=== PATIENT | female | born 1990 | race Two or more races ===

== ENCOUNTER 2022-11-19 09:13 | Outpatient (OUT) | payer MEDICAID, SELFPAY ==
--- NOTE | 2022-11-19 09:26 | US_ITS ---
[address] [address] Patient Name: MARIO MISHRA MRN: [id number] date: 1990 Sex: F Assigned Patient Location: US Current Patient Location: US Accession/Order Number: [id number] Exam Date: 11/19/2022 09:30 Report Date: 11/19/2022 15:12 At the request of: STACIA SALDANA Procedure: US OB anatomy EXAMINATION: US OB anatomy, US OB cervical length HISTORY: Screening For Anatomic Survey Z36.89 COMPARISON: Ultrasound placenta 10/22/2022 TECHNIQUE: Transabdominal sonographic examination was performed for obstetrical and evaluation. FINDINGS: Number: 1 Heart Rate: 150.0 bpm H.B. /min Amniotic Fluid Volume: Subjectively normal Placental Location: POSTERIOR with lower margin 1.3 cm from os. Cervix Length: 4 cm , closed. ANATOMY: Normal Structures - orbits, midline falx, stomach, kidneys, bladder, umbilical cord insertion into abdomen, cervical spine, thoracic spine, lumbar spine, sacral spine, right upper extremity, left upper extremity, right lower extremity, left lower extremity. SUBOPTIMALLY SEEN: Brain and posterior fossa, hard palate, heart and outflow tracts, diaphragm, umbilical arteries and three-vessel cord ABNORMALITIES: None BIOMETRY: BPD: 4.7 cm 20 weeks 2 days HC: 17.6 cm 20 weeks 0 days AC: 14.6 cm 19 weeks 6 days FL: 3.1 cm 19 weeks 4 days EFW:314.0 grams; 42% FL/AC: 21.2 FL/BPD: 65.3 HC/AC: 1.2 GESTATIONAL AGE: Age by EDC: 19 weeks 6 days GUADALUPE by EDC: 04/01/2023 Age by current US: 20 weeks 0 days GUADALUPE by current US: 04/08/2023 IMPRESSION: 1. Single live intrauterine with growth detailed above. 2. Limited examination due to maternal body habitus and position. Suboptimal visualization of numerous anatomic structures. Follow-up recommended. 3. Low-lying posterior placenta. Electronically authenticated by: MYNOR MCCLOUD Date: 11/19/2022 15:12
== END 2022-11-19 09:14 ==
LOC: US 09:13
PROVIDERS: Visit Provider Obstetrics & Gynecology
DX: Z36.89 Encounter for other specified antenatal screening (principal)
CPT/HCPCS: 76805; 76817

== ENCOUNTER 2022-12-29 08:07 | Outpatient (OUT) | payer MEDICAID, SELFPAY ==
[2022-12-29 12:02] LABS: Glucose 1 Hour 223 mg/dL; Thyroid Stimulating Hormone 0.737 uIU/mL (0.358-3.740)
[2022-12-29 13:06] LABS: Free T4 0.85 ng/dL (0.76-1.46)
== END 2022-12-29 08:08 | disposition home or self-care (01) ==
LOC: LAB 08:09
PROVIDERS: PCP Family Medicine; Visit Provider Obstetrics & Gynecology
DX: R79.89 Other specified abnormal findings of blood chemistry (principal); Z13.1 Encounter for screening for diabetes mellitus
CPT/HCPCS: 36415; 82950; 84439; 84443

== ENCOUNTER 2022-12-31 09:36 | Outpatient (OUT) | payer MEDICAID, SELFPAY ==
[2022-12-31 09:57] LABS: Glucose Fasting 116 mg/dL (74-106)
[2022-12-31 12:04] LABS: Glucose 1 Hour 231 mg/dL
[2022-12-31 12:19] LABS: Glucose 2 Hour 223 mg/dL
[2022-12-31 13:28] LABS: Glucose 3 Hour 108 mg/dL
== END 2022-12-31 09:37 | disposition home or self-care (01) ==
LOC: LAB 09:39
PROVIDERS: PCP Family Medicine; Visit Provider Obstetrics & Gynecology
DX: O99.810 Abnormal glucose complicating pregnancy (principal)
CPT/HCPCS: 36415; 82951; 82952

== ENCOUNTER 2023-01-12 07:16 | Outpatient (OUT) | payer MEDICAID, SELFPAY | END 2023-01-12 07:17 | disposition home or self-care (01) | LOC: CR 07:17 → DE 10:57 | PROVIDERS: PCP Family Medicine; Visit Provider Obstetrics & Gynecology | DX: O24.419 Gestational diabetes mellitus in pregnancy, unspecified control (principal); Z71.3 Dietary counseling and surveillance | CPT/HCPCS: G0108 ==

== ENCOUNTER 2023-01-19 08:30 | Outpatient (RCR) | payer MEDICAID, SELFPAY ==
[2023-01-20 08:19] VITALS: BP 147/91; PULSE 102; RESP 18; TEMP 36.2; O2SAT 96
[2023-01-20] MEDS: RHO(D) IMMUNE GLOBULIN 1,500 UNIT SYRINGE 1500 UNIT IM (08:30)
--- NOTE | 2023-01-20 08:43 | PC.NURSE ---
Patient is here for Rhogam injection, she had her blood work completed yesterday. She denies any complaints, she tolerated injection well. Patient was observed and denies any issues or concerns. She was discharged home.
== END 2023-02-10 17:50 | disposition home or self-care (01) ==
LOC: LAB 08:30
PROVIDERS: PCP Family Medicine; Visit Provider Obstetrics & Gynecology
DX: O26.893 Other specified pregnancy related conditions, third trimester (principal); Z67.91 Unspecified blood type, Rh negative
CPT/HCPCS: 36415; 86850; 86900; 86901; 96372; J2790

== ENCOUNTER 2023-01-25 08:17 | Outpatient (OUT) | payer MEDICAID, SELFPAY ==
--- NOTE | 2023-01-25 08:21 | US_ITS ---
[address] [address] Patient Name: MARIO MISHRA MRN: [id number] date: 1990 Sex: F Assigned Patient Location: [facility] Current Patient Location: [facility] Accession/Order Number: [id number] Exam Date: 01/25/2023 08:21 Report Date: 01/25/2023 15:07 At the request of: STACIA SALDANA Procedure: US OB growth EXAMINATION: US OB growth HISTORY: LGA COMPARISON: Ultrasound OB anatomy FINDINGS: Heart Rate: 132.0 bpm Number: 1.0 Position: CEPHALIC Amniotic Fluid Volume: 16.2 cm Maximum Vertical Pocket: 5.1 cm BIOMETRY: BPD: 7.7 cm cm; 30 weeks 5 days; 77% HC: 27.9 cmcm; 30 weeks 4 days; 48% AC: 27.0 cm cm; 31 weeks 1 days; 88% FL: 5.7 cm cm; 30 weeks 0 days; 50% EFW: 1615.6 grams; 81% FL/AC: 21.1 FL/BPD: 74.6 HC/AC: 1.0 GESTATIONAL AGE: Age by EDC: 29 weeks 3 days GUADALUPE by EDC: 04/01/2023 Age by US: 30 weeks 4 days GUADALUPE by US: 04/01/2023 US/US OB growth IMPRESSION: 1. Single live intrauterine with growth detailed above. Electronically authenticated by: MYNOR MCCLOUD Date: 01/25/2023 15:07
== END 2023-01-25 08:18 | disposition home or self-care (01) ==
LOC: NOMS 08:17
PROVIDERS: PCP Family Medicine; Visit Provider Obstetrics & Gynecology
DX: O36.63X0 Maternal care for excessive fetal growth, third trimester, not applicable or unspecified (principal); Z3A.30 30 weeks gestation of pregnancy
CPT/HCPCS: 76816

== ENCOUNTER 2023-02-22 09:55 | Outpatient (OUT) | payer MEDICAID, SELFPAY ==
--- NOTE | 2023-02-22 09:57 | US_ITS ---
[address] [address] Patient Name: MARIO MISHRA MRN: [id number] date: 1990 Sex: F Assigned Patient Location: US Current Patient Location: Accession/Order Number: [id number] Exam Date: 02/22/2023 09:58 Report Date: 02/23/2023 07:13 At the request of: STACIA SALDANA Procedure: US OB growth EXAMINATION: US OB growth HISTORY: LGA COMPARISON: 01/25/2023 FINDINGS: Heart Rate: 137.0 bpm Amniotic Fluid Volume: 16.6 cm Number: 1.0 Position: Cephalic presentation, longitudinal lie Maximum Vertical Pocket: 3.3 cm cm 5.2 cm cm 3.4 cm cm 4.7 cm cm BIOMETRY: BPD: 8.9 cm cm; 35 weeks 6 days; 96% HC: 32.8 cmcm; 37 weeks 1 days, 95% AC: 32.8 cm cm; 36 weeks 5 days, greater than 97% FL: 6.5 cm cm; 33 weeks 3 days; 40.2 % % EFW: 2789.2 grams, 6 lbs. 2 oz., 97% FL/AC: 19.8 FL/BPD: 73.2 HC/AC: 1.0 GESTATIONAL AGE: Age by EDC: 33 weeks 3 days GUADALUPE by EDC: 04/09/2023 Age by US: 35 weeks 0 days GUADALUPE by US: 03/29/2023 US/US OB growth IMPRESSION: Large for gestational age Electronically authenticated by: MERLY MONIQUE Date: 02/23/2023 07:13
== END 2023-02-22 09:56 | disposition home or self-care (01) ==
LOC: US 09:55
PROVIDERS: PCP Family Medicine; Visit Provider Obstetrics & Gynecology
DX: O36.63X0 Maternal care for excessive fetal growth, third trimester, not applicable or unspecified (principal); Z3A.33 33 weeks gestation of pregnancy
CPT/HCPCS: 76816

== ENCOUNTER 2023-03-01 13:49 | Outpatient (OUT) | payer MEDICAID, SELFPAY ==
--- NOTE | 2023-03-01 13:57 | US_ITS ---
[address] [address] Patient Name: MARIO MISHRA MRN: [id number] date: 1990 Sex: F Assigned Patient Location: [facility] Current Patient Location: Accession/Order Number: [id number] Exam Date: 03/01/2023 14:00 Report Date: 03/01/2023 16:12 At the request of: STACIA SALDANA Procedure: US OB BPP w non-stress EXAMINATION: US OB BPP w non-stress HISTORY: LGA COMPARISON: No relevant comparison available. TECHNIQUE: Ultrasound biophysical profile was performed in the radiology department. BREATHING MOVEMENTS: 2.0 GROSS BODY MOVEMENTS: 2.0 TONE: 2.0 QUALITATIVE AMNIOTIC FLUID VOLUME: 2.0 PRESENTATION: Cephalic HEART RATE: 148.4 bpm bpm. AMNIOTIC FLUID VOLUME: 13.0 cm GESTATIONAL AGE: 34 weeks 3 days CONCLUSION: Total biophysical profile score 8.0. Electronically authenticated by: MYNOR MCCLOUD Date: 03/01/2023 16:12
[2023-03-01 14:34] VITALS: BP 119/65; PULSE 96
== END 2023-03-01 15:16 | disposition home or self-care (01) ==
LOC: US 13:50 → FBC 13:50
PROVIDERS: PCP Family Medicine; Visit Provider Obstetrics & Gynecology
DX: Z34.93 Encounter for supervision of normal pregnancy, unspecified, third trimester (principal)
CPT/HCPCS: 76818

== ENCOUNTER 2023-03-04 13:44 | Outpatient (OUT) | payer MEDICAID, SELFPAY ==
[2023-03-04 13:49] VITALS: BP 141/92; PULSE 109
[2023-03-04 14:21] VITALS: BP 144/70; PULSE 103
== END 2023-03-04 14:30 | disposition home or self-care (01) ==
LOC: FBCO 13:44 → FBC 13:44
PROVIDERS: PCP Family Medicine; Visit Provider Obstetrics & Gynecology
DX: Z34.93 Encounter for supervision of normal pregnancy, unspecified, third trimester (principal)
CPT/HCPCS: 59025

== ENCOUNTER 2023-03-08 10:22 | Outpatient (OUT) | payer MEDICAID, SELFPAY ==
--- NOTE | 2023-03-08 13:47 | US_ITS ---
[address] [address] Patient Name: MARIO MISHRA MRN: [id number] date: 1990 Sex: F Assigned Patient Location: [facility] Current Patient Location: Accession/Order Number: [id number] Exam Date: 03/08/2023 13:50 Report Date: 03/08/2023 16:51 At the request of: STACIA SALDANA Procedure: US OB BPP w non-stress EXAMINATION: US OB BPP w non-stress HISTORY: Third trimester Z34.93 COMPARISON: No relevant comparison available. TECHNIQUE: Ultrasound biophysical profile was performed in the radiology department. FINDINGS: BREATHING MOVEMENTS: 2.0 GROSS BODY MOVEMENTS: 2.0 TONE: 2.0 QUALITATIVE AMNIOTIC FLUID VOLUME: 2.0 PRESENTATION: CEPHALIC HEART RATE: 140.6 bpm H.B./min AMNIOTIC FLUID VOLUME: 16.8 cm cm GESTATIONAL AGE: 35 weeks 3 days CONCLUSION: Total biophysical profile score: 8.0 Electronically authenticated by: MERLY MONIQUE Date: 03/08/2023 16:51
[2023-03-08 14:16] VITALS: BP 136/70; PULSE 106
== END 2023-03-08 14:48 ==
LOC: US 10:25 → FBC 13:47
PROVIDERS: PCP Family Medicine; Visit Provider Physician Assistant
DX: O24.419 Gestational diabetes mellitus in pregnancy, unspecified control (principal); Z3A.35 35 weeks gestation of pregnancy
CPT/HCPCS: 76818; G0108

== ENCOUNTER 2023-03-08 10:48 | Outpatient (OUT) | payer MEDICAID, SELFPAY | END 2023-03-08 10:49 | disposition home or self-care (01) | LOC: DE 10:49 | PROVIDERS: PCP Family Medicine; Visit Provider Obstetrics & Gynecology | DX: O24.419 Gestational diabetes mellitus in pregnancy, unspecified control (principal) | CPT/HCPCS: G0108 ==

== ENCOUNTER 2023-03-11 08:32 | Outpatient (OUT) | payer MEDICAID, SELFPAY ==
[2023-03-11 13:49] VITALS: BP 145/78; PULSE 99
== END 2023-03-11 14:45 | disposition home or self-care (01) ==
LOC: FBCO 08:33 → FBC 13:47
PROVIDERS: PCP Family Medicine; Visit Provider Obstetrics & Gynecology
DX: O36.63X0 Maternal care for excessive fetal growth, third trimester, not applicable or unspecified (principal); O24.419 Gestational diabetes mellitus in pregnancy, unspecified control; Z3A.00 Weeks of gestation of pregnancy not specified; O13.3 Gestational [pregnancy-induced] hypertension without significant proteinuria, third trimester
CPT/HCPCS: 59025

== ENCOUNTER 2023-03-15 07:19 | Outpatient (OUT) | payer MEDICAID, SELFPAY ==
--- NOTE | 2023-03-15 13:44 | US_ITS ---
[address] [address] Patient Name: MARIO MISHRA MRN: [id number] date: 1990 Sex: F Assigned Patient Location: [facility] Current Patient Location: Accession/Order Number: [id number] Exam Date: 03/15/2023 13:50 Report Date: 03/15/2023 19:10 At the request of: CLINT VELARDE Procedure: US OB BPP w non-stress EXAMINATION: US OB BPP w non-stress HISTORY: Third trimester COMPARISON: No relevant comparison available. TECHNIQUE: Ultrasound biophysical profile was performed in the radiology department. FINDINGS: BREATHING MOVEMENTS: 2.0 GROSS BODY MOVEMENTS: 2.0 TONE: 2.0 QUALITATIVE AMNIOTIC FLUID VOLUME: 2.0 PRESENTATION: Cephalic HEART RATE: 133.0 bpm H.B./min AMNIOTIC FLUID VOLUME: 15.4 cm cm GESTATIONAL AGE: 36 weeks 3 days CONCLUSION: Total biophysical profile score: 8.0 Electronically authenticated by: MERLY MONIQUE Date: 03/15/2023 19:10
[2023-03-15 14:21] VITALS: BP 143/81; PULSE 86; TEMP 36.1
== END 2023-03-15 14:45 | disposition home or self-care (01) ==
LOC: US 07:19 → FBC 14:00
PROVIDERS: PCP Family Medicine; Visit Provider Physician Assistant
DX: Z34.93 Encounter for supervision of normal pregnancy, unspecified, third trimester (principal); Z3A.36 36 weeks gestation of pregnancy
CPT/HCPCS: 76818; 87081

== ENCOUNTER 2023-03-15 19:57 | Outpatient (REF) | payer MEDICAID, SELFPAY | END 2023-03-15 19:58 | disposition home or self-care (01) | LOC: LAB 19:57 | PROVIDERS: PCP Family Medicine; Visit Provider Obstetrics & Gynecology | DX: Z34.93 Encounter for supervision of normal pregnancy, unspecified, third trimester (principal) | CPT/HCPCS: 87081 ==

== ENCOUNTER 2023-03-18 07:30 | Outpatient (OUT) | payer MEDICAID, SELFPAY ==
[2023-03-18 14:02] VITALS: BP 141/77; PULSE 96
== END 2023-03-18 14:32 | disposition home or self-care (01) ==
LOC: FBCO 07:30 → FBC 13:59
PROVIDERS: PCP Family Medicine; Visit Provider Obstetrics & Gynecology
DX: Z34.93 Encounter for supervision of normal pregnancy, unspecified, third trimester (principal)
CPT/HCPCS: 59025

== ENCOUNTER 2023-03-22 07:54 | Outpatient (OUT) | payer MEDICAID, SELFPAY ==
--- NOTE | 2023-03-22 13:54 | US_ITS ---
[address] [address] Patient Name: MARIO MISHRA MRN: [id number] date: 1990 Sex: F Assigned Patient Location: [facility] Current Patient Location: Accession/Order Number: [id number] Exam Date: 03/22/2023 14:00 Report Date: 03/22/2023 18:46 At the request of: STACIA SALDANA Procedure: US OB BPP w non-stress EXAMINATION: US OB BPP w non-stress HISTORY: THIRD TRIMESTER Z34.03 COMPARISON: No relevant comparison available. TECHNIQUE: Ultrasound biophysical profile was performed in the radiology department. FINDINGS: BREATHING MOVEMENTS: 2 GROSS BODY MOVEMENTS: 2 TONE: 2 QUALITATIVE AMNIOTIC FLUID VOLUME: 2 PRESENTATION: Cephalic HEART RATE: 152 H.B./min AMNIOTIC FLUID VOLUME: 19.2 cm cm GESTATIONAL AGE: 37 weeks 5 days CONCLUSION: Total biophysical profile score: 8 Electronically authenticated by: MERLY MONIQUE Date: 03/22/2023 18:46
--- NOTE | 2023-03-22 13:55 | US_ITS ---
[address] [address] Patient Name: MARIO MISHRA MRN: [id number] date: 1990 Sex: F Assigned Patient Location: [facility] Current Patient Location: [facility] Accession/Order Number: [id number] Exam Date: 03/22/2023 14:00 Report Date: 03/22/2023 18:48 At the request of: STACIA SALDANA Procedure: US OB growth EXAMINATION: US OB growth HISTORY: EXCESSIVE GROWTH AFFECTING O36.63X0 COMPARISON: No relevant comparison available. FINDINGS: Heart Rate: 151.7 bpm Amniotic Fluid Volume: 19.2 cm Number: 1.0 Position: Cephalic presentation, longitudinal lie Maximum Vertical Pocket: 6.5 cm cm 6.5 cm cm 3.8 cm cm 2.3 cm cm BIOMETRY: BPD: 9.5 cm cm; 39 weeks 0 days; 93% HC: 35.1 cmcm; 40 weeks 6 days, 92% AC: 36.3 cm cm; 40 weeks 2 days,>97% FL: 6.9 cm cm; 35 weeks 3 days; 6.6 % % EFW: 3704.6 grams, 8 lbs. 3 oz., 90% FL/AC: 19.0 FL/BPD: 72.4 HC/AC: 1.0 GESTATIONAL AGE: Age by EDC: 37 weeks 5 days GUADALUPE by EDC: 04/07/2023 Age by US: 38 weeks 6 days GUADALUPE by US: 03/30/2023 US/US OB growth IMPRESSION: Abdominal circumference greater than the 97th percentile, otherwise growth within normal limits Electronically authenticated by: MERLY MONIQUE Date: 03/22/2023 18:48
[2023-03-22 14:47] VITALS: BP 143/89; PULSE 107
[2023-03-22 15:09] VITALS: BP 145/75; PULSE 91
[2023-03-22 15:49] VITALS: BP 126/70; PULSE 91
[2023-03-22 16:29] VITALS: BP 148/81; PULSE 90
[2023-03-22 17:05] VITALS: BP 137/74; PULSE 96
== END 2023-03-22 17:17 | disposition home or self-care (01) ==
LOC: FBCO 07:54 → FBC 13:53
PROVIDERS: PCP Family Medicine; Visit Provider Obstetrics & Gynecology
DX: O36.63X0 Maternal care for excessive fetal growth, third trimester, not applicable or unspecified (principal); Z3A.37 37 weeks gestation of pregnancy
CPT/HCPCS: 76816; 76818

== ENCOUNTER 2023-03-25 07:18 | Outpatient (OUT) | payer MEDICAID, SELFPAY ==
[2023-03-25 13:52] VITALS: BP 143/83; PULSE 88
== END 2023-03-25 14:18 | disposition home or self-care (01) ==
LOC: FBCO 07:19 → FBC 13:51
PROVIDERS: PCP Family Medicine; Visit Provider Obstetrics & Gynecology
DX: O36.63X0 Maternal care for excessive fetal growth, third trimester, not applicable or unspecified (principal); Z3A.00 Weeks of gestation of pregnancy not specified
CPT/HCPCS: 59025

== ENCOUNTER 2023-03-28 04:45 | Inpatient (IN) | payer MEDICAID, SELFPAY ==
[2023-03-28] VITALS (36 sets, daily range): BP systolic 114–158; BP diastolic 58–97; PULSE 80–125; RESP 16–18; TEMP 35.8–36.9
[2023-03-28] MEDS: 0.9 % SODIUM CHLORIDE 1,000 ML 125 ML IV (05:55)
[2023-03-28 06:16] LABS: Glucometer 103 mg/dL (74-106)
[2023-03-28 06:32] LABS: Hematocrit 32.6 % (36.0-48.0); Hemoglobin 10.9 g/dL (12.0-16.0); Mean Corpuscular HGB Conc 33.4 g/dL (29.9-35.2); Mean Corpuscular Volume 83.8 fL (81.0-99.0); Mean Platelet Volume 12.4 fL (9.5-13.5); Platelet Count 220 10^3/uL (150-450); Red Blood Count 3.89 10^6/uL (4.20-5.40); Red Cell Distribution Width 15.5 % (11.0-15.0); White Blood Count 10.4 10^3/uL (4.0-11.0)
[2023-03-28] MEDS: OXYTOCIN/0.9 % SODIUM CHLORIDE 10 UNITS/500 ML PLAST..BAG 6 UNIT IV (06:38)
[2023-03-28 06:46] LABS: Amphetamine Screen Urine NEGATIVE (NEGATIVE); Barbiturates Screen Urine NEGATIVE (NEGATIVE); Benzodiazepines Screen Urine NEGATIVE (NEGATIVE); Buprenorphine Screen Urine NEGATIVE (NEGATIVE); Cannabinoid Screen Urine NEGATIVE (NEGATIVE); Cocaine Screen Urine NEGATIVE (NEGATIVE); Methadone Screen Urine NEGATIVE (NEGATIVE); Methamphetamines Screen Urine NEGATIVE (NEGATIVE); Opiate Screen Urine NEGATIVE (NEGATIVE); Oxycodone Screen Urine NEGATIVE (NEGATIVE); Phencyclidine Screen Urine NEGATIVE (NEGATIVE); Tricyclic Antidepressant Urine NEGATIVE (NEGATIVE)
--- NOTE | 2023-03-28 07:29 | W.PC.ACHO ---
Registration Status: ADM IN Primary Language: Austrian Preferred Language: Austrian Report given at 1900 to Mahsa SANDOVAL. Active Medications Generic Name Dose Route Start Last Admin Trade Name Freq PRN Reason Stop Dose Admin Carboprost Tromethamine 250 mcg 03/28/23 04:48 Carboprost Tromethamine 250 Mcg/Ml 1 Ml Vial IM 03/30/23 04:49 Q15M PRN Bleeding Diphenhydramine HCl 25 mg 03/28/23 06:27 Diphenhydramine Hcl 50 Mg/Ml (1ml) Vial IV 03/29/23 06:27 Q6H PRN Itching Ephedrine Sulfate 5 mg 03/28/23 06:27 Ephedrine Sulfate 50 Mg/Ml Vial IV 03/29/23 06:27 Q5M PRN Blood Pressure - Low Fentanyl Citrate 100 mcg 03/28/23 06:27 Fentanyl Citrate/Pf 100 Mcg/2 Ml Vial EPIDURAL ONCE PRN epidural Fentanyl Citrate 100 mcg 03/28/23 06:27 Fentanyl Citrate/Pf 100 Mcg/2 Ml Vial EPIDURAL ONCE PRN epidural Sodium Chloride 1,000 mls @ 125 mls/hr 03/28/23 05:00 03/28/23 05:55 Sodium Chloride 0.9% 1,000 Ml IV 125 mls/hr .Q8H BREEZY Administration Oxytocin/Sodium Chloride 10 units in 500 mls @ 6 mls/hr 03/28/23 05:00 03/28/23 07:15 Pitocin 10 Unit/500 Ml-Ns IV 4 milliunit/min CONT BREEZY 12 mls/hr Infusion Protocol 2 MILLIUNIT/MIN Oxytocin/Sodium Chloride 20 units in 1,000 mls @ 125 mls/hr 03/28/23 05:00 Pitocin 20 Unit/1,000 Ml-Ns IV 03/28/23 12:59 Q8H BREEZY Sodium Chloride 1,000 mls @ 1,000 mls/hr 03/28/23 07:01 Sodium Chloride 0.9% 1,000 Ml IV 03/28/23 08:00 .Q1H ONE Ropivacaine/Sodium Chloride 400 mg in 200 mls @ 6 mls/hr 03/28/23 07:00 Naropin 0.2% 400 Mg/200 Ml Bag EPIDURAL Q24H BREEZY Lidocaine 1 ml 03/28/23 04:48 Lidocaine Hcl 1% 200 Mg/20 Ml Mdv INJ ONCE PRN Pain Lidocaine 5 ml 03/28/23 04:48 Lidocaine Viscous 2% 15 Ml Solution TOPICAL ONCE PRN Pain Lidocaine 5 ml 03/28/23 06:27 Lidocaine Hcl 2% Pf 100 Mg/5 Ml Vial INJ 03/29/23 06:27 Q1H PRN Pain Methylergonovine Maleate 0.2 mg 03/28/23 04:48 Methylergonovine Maleate 0.2 Mg/Ml Ampule IM 03/30/23 04:49 ONCE PRN Uterine Contractility/Contract Methylergonovine Maleate 0.2 mg 03/28/23 04:48 Methylergonovine Maleate 0.2 Mg Tablet PO 03/30/23 04:49 Q4H PRN Uterine Contractility/Contract Misoprostol 600 mcg 03/28/23 04:48 Misoprostol 100 Mcg Tablet PO 03/30/23 04:49 ONCE PRN Uterine Bleeding Misoprostol 800 mcg 03/28/23 04:48 Misoprostol 100 Mcg Tablet SL 03/30/23 04:49 ONCE PRN Uterine Bleeding Misoprostol 1,000 mcg 03/28/23 04:48 Misoprostol 100 Mcg Tablet DE 03/30/23 04:49 ONCE PRN Uterine Bleeding Naloxone HCl 0.4 mg 03/28/23 06:27 Naloxone Hcl 0.4 Mg/Ml Vial IV 03/29/23 06:27 ONCE PRN Respiratory Distress Ondansetron HCl 4 mg 03/28/23 04:48 Ondansetron Pf 4 Mg/2 Ml Vial IV Q6H PRN Nausea And Vomiting Ondansetron HCl 4 mg 03/28/23 04:48 Ondansetron 4 Mg Rapdis Tablet SL Q6H PRN Nausea And Vomiting Oxytocin 10 unit 03/28/23 04:48 Oxytocin 10 Unit/Ml Vial IM 03/30/23 04:49 ONCE PRN Hemorrhage Diet Category Date Time Status Regular Consistency Diet Diet 03/28/23 04:49 Active Consults Category Date Time Status Consult to Anesthesiology Routine Cons 03/28/23 Ordered IV Insertion/Site Date of IV Line Insertion [ 03/28/23 Short PIV (<1.75 in) 20g right Forearm] IV Insertion Time [Short PIV ( 05:10 <1.75 in) 20g right Forearm] Neurology Patient orientation (short person,place,time,situation list)
[2023-03-28] MEDS: 0.9 % SODIUM CHLORIDE 1,000 ML 1000 ML IV (08:46)
[2023-03-28] MEDS: FENTANYL CITRATE/PF 100 MCG/2 ML VIAL EPIDURAL ×2 (09:26→09:27)
[2023-03-28] MEDS: ROPIVACAINE HCL/PF 400 MG/200 ML PREMIX 6 MG EPIDURAL (09:26)
[2023-03-28] MEDS: OXYTOCIN/0.9 % SODIUM CHLORIDE 20 UNITS/1,000 ML PLAST..BAG 125 UNIT IV (09:45)
--- NOTE | 2023-03-28 09:52 | PM.OBPRCVD ---
Procedure Intrapartal events: None Induction method: per pitocin protocol Delivery augmentation: rupture of membranes and pitocin Delivery monitor: external FHT and external uterine Route of delivery: Episiotomy Description: none Laceration description: periurethral - 1st degree Delivery repair: Vicryl Estimated blood loss (mL): 300 Anesthesia type: Epidural Disposition: floor Infant Delivery date: 03/28/23 Gender: female presentation: vertex Placental delivery description: Spontaneous cord description: 3 Vessels
[2023-03-28] MEDS: BENZOCAINE/MENTHOL 85 GRAM SPRAY BOTTLE 1 APPLIC TOPICAL (10:43)
[2023-03-28] MEDS: IBUPROFEN 600 MG TABLET PO ×2 (10:44→19:09)
[2023-03-28] MEDS: LABETALOL HCL 100 MG TABLET PO (21:13)
[2023-03-29] VITALS (7 sets, daily range): BP systolic 135–142; BP diastolic 73–81; PULSE 93–107; RESP 16; TEMP 36.4–36.6
[2023-03-29 05:56] LABS: Basophils Percent Auto 0.3 % (0.2-2.0); Eosinophils Absolute Auto 0.1 10^3/uL (0.0-0.7); Eosinophils Percent Auto 0.5 % (0.9-7.0); Hematocrit 25.6 % (36.0-48.0); Hemoglobin 8.2 g/dL (12.0-16.0); Immature Granulocytes Abs Auto 0.06 10^3/uL (0.00-0.03); Immature Granulocytes Pct Auto 0.6 % (0.0-0.5); Lymphocytes Absolute Auto 1.7 10^3/uL (1.2-3.8); Lymphocytes Percent Auto 17.4 % (20.5-60.0); Mean Corpuscular Hemoglobin 27.4 pg (26.7-34.0); Mean Corpuscular Volume 85.6 fL (81.0-99.0); Mean Platelet Volume 11.3 fL (9.5-13.5); Monocytes Absolute Auto 0.6 10^3/uL (0.3-0.8); Monocytes Percent Auto 6.1 % (1.7-12.0); Neutrophils Absolute Auto 7.3 10^3/uL (1.4-6.5); Neutrophils Percent Auto 75.1 % (43.0-75.0); Platelet Count 163 10^3/uL (150-450); Red Blood Count 2.99 10^6/uL (4.20-5.40); Red Cell Distribution Width 15.6 % (11.0-15.0); White Blood Count 9.7 10^3/uL (4.0-11.0)
--- NOTE | 2023-03-29 07:12 | W.PC.ACHO ---
Registration Status: ADM IN Primary Language: Burundian Preferred Language: Burundian Active Medications Generic Name Dose Route Start Last Admin Trade Name Freq PRN Reason Stop Dose Admin Acetaminophen 650 mg 03/28/23 09:55 Acetaminophen 325 Mg Tablet PO Q6H PRN Mild Pain Al Hydroxide/Mg Hydroxide 2,400 mg 03/28/23 09:55 Magnesium Hydroxide 2,400 Mg/10 Ml Oral.Susp PO Q6H PRN Dyspepsia Benzocaine/Menthol 1 applic 03/28/23 09:55 03/28/23 10:43 Benzocaine/Menthol 85 Gram [place] Bottle TOPICAL 1 applic Q2H PRN Administration Pain Carboprost Tromethamine 250 mcg 03/28/23 04:48 Carboprost Tromethamine 250 Mcg/Ml 1 Ml Vial IM 03/29/23 10:00 Q15M PRN Bleeding Diphtheria/Pertussis/Tetanus Vacc 0.5 ml 03/30/23 09:00 Adacel Diph,Pertuss(Acell),Tet Vac/Pf 0.5 Ml Adult Syringe IM 03/30/23 09:01 .ONCE ONE Docusate Sodium 100 mg 03/29/23 09:00 Docusate Sodium 100 Mg Capsule PO BID BREEZY Sodium Chloride 1,000 mls @ 125 mls/hr 03/28/23 05:00 03/28/23 05:55 Sodium Chloride 0.9% 1,000 Ml IV 125 mls/hr .Q8H BREEZY Administration Ibuprofen 600 mg 03/28/23 09:55 03/28/23 19:09 Ibuprofen 600 Mg Tablet PO 600 mg Q6H PRN Administration Moderate Pain Labetalol HCl 100 mg 03/28/23 13:00 03/28/23 21:13 Labetalol Hcl 100 Mg Tablet PO 100 mg BID BREEZY Administration Measles/Mumps/Rubella Vaccine Live 0.5 ml 03/30/23 09:00 Measles,Mumps,Rubella Vacc/Pf 0.5 Ml Vial SQ 03/30/23 09:01 .ONCE ONE Methylergonovine Maleate 0.2 mg 03/28/23 04:48 Methylergonovine Maleate 0.2 Mg/Ml Ampule IM 03/29/23 10:00 ONCE PRN Uterine Contractility/Contract Methylergonovine Maleate 0.2 mg 03/28/23 04:48 Methylergonovine Maleate 0.2 Mg Tablet PO 03/29/23 10:00 Q4H PRN Uterine Contractility/Contract Misoprostol 600 mcg 03/28/23 04:48 Misoprostol 100 Mcg Tablet PO 03/29/23 10:00 ONCE PRN Uterine Bleeding Misoprostol 800 mcg 03/28/23 04:48 Misoprostol 100 Mcg Tablet SL 03/29/23 10:00 ONCE PRN Uterine Bleeding Misoprostol 1,000 mcg 03/28/23 04:48 Misoprostol 100 Mcg Tablet VA 03/29/23 10:00 ONCE PRN Uterine Bleeding Ondansetron HCl 4 mg 03/28/23 04:48 Ondansetron Pf 4 Mg/2 Ml Vial IV Q6H PRN Nausea And Vomiting Ondansetron HCl 4 mg 03/28/23 04:48 Ondansetron 4 Mg Rapdis Tablet SL Q6H PRN Nausea And Vomiting Senna 17.2 mg 03/28/23 20:00 Sennosides 8.6 Mg Tablet PO QHS PRN Constipation Simethicone 80 mg 03/28/23 09:55 Simethicone 80 Mg Tab.Chew PO QID PRN Abdominal Distention Temazepam 15 mg 03/28/23 20:00 Temazepam 15 Mg Capsule PO QHS PRN Sleep Witch Dulce/Glycerin 1 pad 03/28/23 09:55 Glycerin/Witch Dulce Pads TOPICAL Q2H PRN Pain Diet Category Date Time Status Regular Consistency Diet Diet 03/28/23 09:56 Active Respiratory Oxygen Delivery Method Room Air Oxygen Delivery Method Room Air Oxygen Delivery Method Room Air Oxygen Delivery Method Room Air Cardiology Heart Sounds Strong,Regular Heart Sounds Strong,Regular Renal Bladder Pattern Continent Bladder Pattern Continent Bladder Pattern Continent
[2023-03-29] MEDS: LABETALOL HCL 100 MG TABLET PO ×2 (08:30→21:59)
[2023-03-29] MEDS: DOCUSATE SODIUM 100 MG CAPSULE PO ×2 (08:30→21:59)
[2023-03-29] MEDS: IBUPROFEN 600 MG TABLET PO ×2 (08:32→21:59)
--- NOTE | 2023-03-29 09:09 | PM.OBPN ---
OB - PN: Subj Subjective Patient comments: no complaints and pain well controlled [place] status: doing well feeding status: exclusively Exam Constitutional Vital Signs, click to edit/add: Last Vital Signs Temp 97.5 F L 03/29/23 08:25 Pulse 107 H 03/29/23 08:24 Resp 16 03/29/23 08:25 BP 142/73 H 03/29/23 08:24 O2 Del Method Room Air 03/29/23 00:00 Documenting provider has reviewed patient's vital signs: yes Common normals: no apparent distress General appearance: cooperative HENMT Common normals: normocephalic Eye Common normals: EOMs intact bilaterally Neck & C-Spine Common normals: full ROM and no lymphadenopathy Lymph Lymphatic: no lymphadenopathy noted Chest Common normals: inspection of chest normal Respiratory Common normals: normal respiratory effort and no retractions Cardio Common normals: regular rate, regular rhythm and no murmurs Rate: regular rate Rhythm: regular rhythm GI Common normals: Normal to inspection, nondistended, normoactive bowel sounds present Common normals: no CVA tenderness Back & Pelvis Common normals: no CVA tenderness Extremity Common normals: normal to inspection and full ROM Neuro Common normals: oriented x3 and moves all extremities Psych Common normals: mental status grossly normal, thought process normal and cooperative Results Labs Labs: Short CBC 03/29/23 Range/Units 05:47 WBC 9.7 (4.0-11.0) 10^3/uL Hgb 8.2 L (12.0-16.0) g/dL Hct 25.6 L (36.0-48.0) % Plt Count 163 (150-450) 10^3/uL OB - PN: A/P Plan - Vaginal Delivery day: 1 Plan: routine care Time Spent with Patient Time: Total time spent is greater than 50% in coordination of care (as documented) at patient's floor/unit and/or counseling patient: Total time spent with greater than 50% in coordination of care (as documented) at patient's floor/unit and/or counseling patient: less than 15 minutes
[2023-03-29] MEDS: FERROUS SULFATE 325 MG TABLET PO ×2 (09:39→21:59)
[2023-03-30 02:06] VITALS: BP 132/60; PULSE 83
--- NOTE | 2023-03-30 07:16 | W.PC.ACHO ---
Registration Status: ADM IN Primary Language: Ugandan Preferred Language: Ugandan Active Medications Generic Name Dose Route Start Last Admin Trade Name Freq PRN Reason Stop Dose Admin Acetaminophen 650 mg 03/28/23 09:55 Acetaminophen 325 Mg Tablet PO Q6H PRN Mild Pain Al Hydroxide/Mg Hydroxide 2,400 mg 03/28/23 09:55 Magnesium Hydroxide 2,400 Mg/10 Ml Oral.Susp PO Q6H PRN Dyspepsia Benzocaine/Menthol 1 applic 03/28/23 09:55 03/28/23 10:43 Benzocaine/Menthol 85 Gram [place] Bottle TOPICAL 1 applic Q2H PRN Administration Pain Diphtheria/Pertussis/Tetanus Vacc 0.5 ml 03/30/23 09:00 Adacel Diph,Pertuss(Acell),Tet Vac/Pf 0.5 Ml Adult Syringe IM 03/30/23 09:01 .ONCE ONE Docusate Sodium 100 mg 03/29/23 09:00 03/29/23 21:59 Docusate Sodium 100 Mg Capsule PO 100 mg BID BREEZY Administration Ferrous Sulfate 325 mg 03/29/23 09:30 03/29/23 21:59 Ferrous Sulfate 325 Mg Tablet PO 325 mg BID BREEZY Administration Sodium Chloride 1,000 mls @ 125 mls/hr 03/28/23 05:00 03/28/23 05:55 Sodium Chloride 0.9% 1,000 Ml IV 125 mls/hr .Q8H BREEZY Administration Ibuprofen 600 mg 03/28/23 09:55 03/29/23 21:59 Ibuprofen 600 Mg Tablet PO 600 mg Q6H PRN Administration Moderate Pain Labetalol HCl 100 mg 03/28/23 13:00 03/29/23 21:59 Labetalol Hcl 100 Mg Tablet PO 100 mg BID BREEZY Administration Measles/Mumps/Rubella Vaccine Live 0.5 ml 03/30/23 09:00 Measles,Mumps,Rubella Vacc/Pf 0.5 Ml Vial SQ 03/30/23 09:01 .ONCE ONE Ondansetron HCl 4 mg 03/28/23 04:48 Ondansetron Pf 4 Mg/2 Ml Vial IV Q6H PRN Nausea And Vomiting Ondansetron HCl 4 mg 03/28/23 04:48 Ondansetron 4 Mg Rapdis Tablet SL Q6H PRN Nausea And Vomiting Senna 17.2 mg 03/28/23 20:00 Sennosides 8.6 Mg Tablet PO QHS PRN Constipation Simethicone 80 mg 03/28/23 09:55 Simethicone 80 Mg Tab.Chew PO QID PRN Abdominal Distention Temazepam 15 mg 03/28/23 20:00 Temazepam 15 Mg Capsule PO QHS PRN Sleep Witch Dulce/Glycerin 1 pad 03/28/23 09:55 Glycerin/Witch Dulce Pads TOPICAL Q2H PRN Pain Respiratory Oxygen Delivery Method Room Air Cardiology Heart Sounds Strong,Regular Heart Sounds Strong,Regular Bowels Bowel Pattern No Bowel Movement Bowel Pattern No Bowel Movement Renal Bladder Pattern Continent Bladder Pattern Continent
--- NOTE | 2023-03-30 07:39 | P.OBPN_ITS ---
OB - PN: Subj Subjective Patient comments: no complaints and pain well controlled [place] status: doing well Exam Constitutional Vital Signs, click to edit/add: Last Vital Signs Temp 97.9 F 03/29/23 16:34 Pulse 83 03/30/23 02:06 Resp 16 03/29/23 16:35 BP 132/60 03/30/23 02:06 O2 Del Method Room Air 03/29/23 16:35 Documenting provider has reviewed patient's vital signs: yes Common normals: no apparent distress Respiratory Common normals: clear to auscultation bilaterally Cardio Common normals: regular rate and regular rhythm GI Common normals: Normal to inspection, nondistended, normoactive bowel sounds present Extremity Common normals: no calf tenderness OB - PN: A/P Plan - Vaginal Delivery day: 2 Plan: routine care, discharge home and follow up 6 weeks Time Spent with Patient Time: Total time spent is greater than 50% in coordination of care (as documented) at patient's floor/unit and/or counseling patient: Total time spent with greater than 50% in coordination of care (as documented) at patient's floor/unit and/or counseling patient: less than 15 minutes
[2023-03-30 08:35] VITALS: BP 137/90; PULSE 109
[2023-03-30 08:40] VITALS: BP 137/90; PULSE 109; RESP 16; TEMP 36.8
[2023-03-30] MEDS: DOCUSATE SODIUM 100 MG CAPSULE PO (08:40)
[2023-03-30] MEDS: IBUPROFEN 600 MG TABLET PO (08:40)
[2023-03-30] MEDS: LABETALOL HCL 100 MG TABLET PO (08:40)
[2023-03-30] MEDS: FERROUS SULFATE 325 MG TABLET PO (08:41)
== END 2023-03-30 11:00 | disposition home or self-care (01) | DRG 560 ==
PROVIDERS: Admitting Provider Obstetrics & Gynecology; PCP Family Medicine; Visit Provider Obstetrics & Gynecology
DX: O24.429 Gestational diabetes mellitus in childbirth, unspecified control (principal); O13.4 Gestational [pregnancy-induced] hypertension without significant proteinuria, complicating childbirth; O99.354 Diseases of the nervous system complicating childbirth; G35 Multiple sclerosis; O36.63X0 Maternal care for excessive fetal growth, third trimester, not applicable or unspecified; O71.82 Other specified trauma to perineum and vulva; Z37.0 Single live birth; Z3A.39 39 weeks gestation of pregnancy; Z87.891 Personal history of nicotine dependence; Z83.3 Family history of diabetes mellitus; Z82.3 Family history of stroke; Z82.49 Family history of ischemic heart disease and other diseases of the circulatory system; Z80.9 Family history of malignant neoplasm, unspecified
CPT/HCPCS: 36415; 59025; 59050; 59410; 80307; 85025; 85027; 86850; 86900; 86901; 96374; 96376

== ENCOUNTER 2023-04-04 08:00 | Outpatient (OUT) | payer MEDICAID, SELFPAY ==
[2023-04-04 10:52] VITALS: BP 136/71; PULSE 103; RESP 20; TEMP 36.9; O2SAT 98
--- NOTE | 2023-04-04 10:57 | PC.NURSE ---
Arrives for follow up, states doing well, feels well and things easier second time around Denies concerns for self or for .
== END 2023-04-04 10:10 | disposition home or self-care (01) ==
LOC: FBCO 08:00
PROVIDERS: PCP Family Medicine; Visit Provider Obstetrics & Gynecology
DX: Z39.2 Encounter for routine postpartum follow-up (principal)

== ENCOUNTER 2023-05-03 10:55 | Outpatient (OUT) | payer MEDICAID, SELFPAY ==
--- NOTE | 2023-05-03 11:28 | ECG_ITS ---
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
== END 2023-05-03 10:56 | disposition home or self-care (01) ==
LOC: PST 10:56
PROVIDERS: PCP Family Medicine; Visit Provider Obstetrics & Gynecology
DX: Z01.810 Encounter for preprocedural cardiovascular examination (principal)
CPT/HCPCS: 93005

== ENCOUNTER 2023-05-13 06:04 | Day surgery (SDC) | payer MEDICAID, SELFPAY ==
[2023-05-03 11:27] VITALS: BP 129/89; PULSE 73; RESP 20; TEMP 36.2; O2SAT 99; BMI 39.2
[2023-05-13] VITALS (14 sets, daily range): BP systolic 104–155; BP diastolic 83–92; PULSE 65–86; RESP 9–26; TEMP 36.1–36.4; O2SAT 90–98; BMI 39.7
[2023-05-13 06:16] LABS: Basophils Percent Auto 0.6 % (0.2-2.0); Eosinophils Absolute Auto 0.1 10^3/uL (0.0-0.7); Eosinophils Percent Auto 1.7 % (0.9-7.0); Hematocrit 36.5 % (36.0-48.0); Hemoglobin 10.8 g/dL (12.0-16.0); Immature Granulocytes Abs Auto 0.03 10^3/uL (0.00-0.03); Immature Granulocytes Pct Auto 0.5 % (0.0-0.5); Lymphocytes Absolute Auto 1.8 10^3/uL (1.2-3.8); Lymphocytes Percent Auto 27.7 % (20.5-60.0); Mean Corpuscular HGB Conc 29.6 g/dL (29.9-35.2); Mean Corpuscular Hemoglobin 23.6 pg (26.7-34.0); Mean Corpuscular Volume 79.9 fL (81.0-99.0); Mean Platelet Volume 11.1 fL (9.5-13.5); Monocytes Absolute Auto 0.4 10^3/uL (0.3-0.8); Monocytes Percent Auto 5.4 % (1.7-12.0); Neutrophils Absolute Auto 4.2 10^3/uL (1.4-6.5); Neutrophils Percent Auto 64.1 % (43.0-75.0); Platelet Count 288 10^3/uL (150-450); Red Blood Count 4.57 10^6/uL (4.20-5.40); Red Cell Distribution Width 15.4 % (11.0-15.0); White Blood Count 6.5 10^3/uL (4.0-11.0)
[2023-05-13 06:38] LABS: HCG Quantitative <1 mIU/mL
[2023-05-13] MEDS: LACTATED RINGER'S SOLUTION 1,000 ML 50 ML IV ×2 (06:50→08:28)
--- NOTE | 2023-05-13 08:35 | PM.ONB ---
Brief Operative Note Date of procedure: 05/13/23 Pre-op diagnosis: desires permanent sterilization, multiparity Post-op diagnosis: same as pre-op Procedure: NAME OF PROCEDURE: robotic assisted bilateral laparoscopic salpingectomy PROCEDURE: The patient was taken back to the Operating Room where she was given general anesthesia without difficulty. She was then prepped and draped in the normal sterile fashion after being placed in a dorsal lithotomy position. A wet sponge stick was placed into the patient's vagina. Attention was then turned to the patient's abdomen, where a scalpel was used to make a small infraumbilical incision. The S retractors were then used to dissect the underlying layers until the fascia could be seen. The fascia was then grasped with [place] clamps and tented up. A knife was then used to make a small incision to the fascia. The muscle was identified, at that time two sutures of #0 Vicryl on a GI needle was then used and placed through the fascia. the peritoneum was then identified and entered bluntly. The 10-4 Alina was then placed into the patient's abdomen. This was confirmed with direct visualization of the bowel, using the laparoscope. The patient's abdomen was then insufflated using approximately 4 liters of CO2 gas. Survey of the patient's abdomen demonstrated ovaries were normal in appearance as well as both tubes and uterus. A second and third rt and lt lateral robotic ports which were 8 mm in size, was then placed after the skin incision was made under direct visualization . the robotic arms were engaged. The patient's tube on the patient's right side was identified and tented up using a grasper, the ligasure apparatus was then used to come across the mesosalpingx from the fimbriated end to the insertion site at the uterus, the tube was then amputated and removed in its entirety. This was done on the contralateral side. The tubes were the removed from the patients abdomen. Excellent hemostasis was noted. The lateral ports were then moved under direct visualization with excellent hemostasis. All instruments were removed from the patient's abdomen. The fascia was closed using the #0 Vicryl on GI needle. The skin was closed using 4-0 Vicryl subcuticularly. All instruments were removed from the patient's vagina as well. The patient was taken out of the dorsal lithotomy position and placed in the supine position and taken to recovery in stable condition. Sponge, lap and needle counts were correct x2. Anesthesia: CHELSEA Surgeon: Al Ferrell Oil Dr[employer] Engineer: Ammy Horton Estimated blood loss (mL): 5 Pathology: other (bilateral tubes) Condition: stable Disposition: PACU
--- NOTE | 2023-05-13 09:30 | PC.NURSE ---
PATIENT STATES PAIN IS TOLERABLE AT A 4 AND WHEN OFFERED ANYTHNG FOR PAIN, PATIENT REFUSED.
[2023-05-13] MEDS: HYDROCODONE/ACET 5-325 MG TABLET 1 TAB PO (09:50)
== END 2023-05-13 10:40 | disposition home or self-care (01) ==
PROVIDERS: PCP Family Medicine; Visit Provider Obstetrics & Gynecology
PROC: (CPT 840; principal; 2023-05-13 07:30)
DX: Z30.2 Encounter for sterilization (principal); E66.01 Morbid (severe) obesity due to excess calories; Z68.39 Body mass index [BMI] 39.0-39.9, adult; Z87.891 Personal history of nicotine dependence; I10 Essential (primary) hypertension; K21.9 Gastro-esophageal reflux disease without esophagitis
CPT/HCPCS: 58661; 36415; 84702; 85025; 88302; J2704

== ENCOUNTER 2023-11-21 16:38 | Outpatient (OUT) | payer MEDICAID, SELFPAY ==
[2023-11-21 17:01] LABS: Basophils Percent Auto 0.6 % (0.2-2.0); Eosinophils Absolute Auto 0.1 10^3/uL (0.0-0.7); Hematocrit 40.9 % (36.0-48.0); Hemoglobin 13.4 g/dL (12.0-16.0); Immature Granulocytes Abs Auto 0.03 10^3/uL (0.00-0.03); Immature Granulocytes Pct Auto 0.4 % (0.0-0.5); Lymphocytes Absolute Auto 2.2 10^3/uL (1.2-3.8); Lymphocytes Percent Auto 31.9 % (20.5-60.0); Mean Corpuscular HGB Conc 32.8 g/dL (29.9-35.2); Mean Corpuscular Hemoglobin 26.7 pg (26.7-34.0); Mean Corpuscular Volume 81.6 fL (81.0-99.0); Mean Platelet Volume 10.8 fL (9.5-13.5); Monocytes Absolute Auto 0.4 10^3/uL (0.3-0.8); Monocytes Percent Auto 5.5 % (1.7-12.0); Neutrophils Absolute Auto 4.2 10^3/uL (1.4-6.5); Neutrophils Percent Auto 59.6 % (43.0-75.0); Platelet Count 246 10^3/uL (150-450); Red Blood Count 5.01 10^6/uL (4.20-5.40); Red Cell Distribution Width 15.4 % (11.0-15.0)
--- OUTSIDE RECORDS SUMMARY | 2023-11-21 17:01 | XMS_ITS | CCD ---
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 Name Role Phone Andrew SIMMONS Primary Care Physician DOMINGO NEWBERRY Attending Unavailable ISAIAH, JOSE Admitting Unavailable ISAIAH, JOSE Attending Unavailable ZIEBER, DR MYNOR Helm Consulting Unavailable ISAIAH, JOSE Consulting Unavailable KAPMARVIN, DR MORALES Consulting Unavailable ONUR, DOMINGO Admitting Unavailable DOMINGO NEWBERRY Attending Unavailable DOMINGO NEWBERRY Consulting Unavailable [facility], DR ADAMS Primary Care Unavailable IRIS, DR MORALES Consulting Unavailable LES ., DR PALOMO Admitting Unavailable LES ., DR PALOMO Attending Unavailable LES ., DR PALOMO Consulting Unavailable MISC, DR ADAMS Primary Care Unavailable LES ., DR PALOMO Attending Unavailable LES ., DR PALOMO Admitting Unavailable LES ., DR PALOMO Consulting Unavailable ZIEBER, DR MYNOR Helm Consulting Unavailable REQUEST, DR PANTOJA LISTED Consulting Unavaila ble ROGERS, DR MYNOR Helm Consulting Unavailable MISC, DR ADAMS Primary Care Unavailable PAY ., DR ROY Admitting Unavailable PAY ., DR ROY Attending Unavailable PAY ., DR ROY Consulting Unavailable PAY ., DR ROY Attending Unavailable PAY ., DR ROY Admitting Unavailable LES ., DR PALOMO Attending Unavailable LES ., DR PALOMO Consulting Unavailable LES ., DR PALOMO Admitting Unavailable LES ., DR PALOMO Attending Unavailable LES ., DR PALOMO Consulting Unavailable LES ., DR PALOMO Admitting Unavailable KAPLE, DR MORALES Consulting Unavailable LES ., DR PALOMO Admitting Unavailable LES ., DR PALOMO Attending Unavailable LES ., DR PALOMO Consulting Unavailable Renan Corona Attending Unavailable Medications Current Medications Medication Drug Class(es) Dates Sig (Normalized) Sig (Original) amoxicillin 875 mg / clavulanate 125 mg oral tablet (1 source) Penicillin-class Antibacterial Start: 07-12-2022 End: 07-22-2022 Augmentin 875 mg-125 mg Tab 1 tab(s), Oral, q12hr for 10 day(s), 20 tab(s), Refill(s) 0, [facility]/pharmacy #[id number], 180.3, cm, 07/12/22 13:37:00 EST, Height/Length Dosing, 138, kg, 07/12/22 13:37:00 EST, Weight Dosing Start Date: 07/12/22 Stop Date: 07/22/22 Status: Ordered meloxicam 15 mg oral tablet (2 sources) Nonsteroidal Anti-inflammatory Drug Start: 06-16-2021 take 1 tablet by mouth once daily Mobic 15 mg Tab 15 mg = 1 tab(s), Oral, Daily, # 30 tab(s), Refills(s) 5, Pharmacy: [facility]/pharmacy #[id number], 180, cm, 05/08/21 15:10:00 EST, Height/Length Dosing, 151.1, kg, 05/08/21 15:10:00 EST, Weight Dosing Start Date: 06/16/21 Status: Ordered 24 hr metoprolol succinate 50 mg extended release oral tablet (2 sources) beta-Adrenergic Handy Start: 10-30-2021 take 1 tablet by mouth twice daily metoprolol 50 mg ER Tab 50 mg = 1 tab(s), Oral, BID, # 180 tab(s), Refills(s) 3, Pharmacy: [facility]/pharmacy #[id number], 180, cm, 10/30/21 8:54:00 EDT, Height/Length Dosing, 143.8, kg, 10/30/21 8:54:00 EDT, Weight Dosing Start Date: 10/30/21 Status: Ordered ProAir HFA 90 mcg/inh inhalation aerosol (2 sources) Start: 07-04-2019 take 2 puff(s) by inhalation once for wheezing ProAir HFA 90 mcg/inh inhalation aerosol 2 puff(s), Inhalation, Once for wheezing, 8.5 gram, Refill(s) 0, [facility]/pharmacy #[id number], 180.34, cm, 01/03/19 14:09:00 EDT, Height/Length Measured, 137.9, kg, 07/02/19 12:19:00 EST, Weight Measured Start Date: 07/04/19 Status: Ordered Problems Active Problems Problem Classification Problem Date Documented Date Episodic/Chronic Asthma (2 sources) Asthma 08-24-2013 Chronic Cardiac dysrhythmias (8 sources) Tachyarrhythmia ; Translations: [Tachycardia, unspecified] Onset: 10-30-2021 Episodic Hemorrhage during ; abruptio placenta; placenta previa (4 sources) Hemorrhage in early , unspecified; Translations: [Threatened ] Onset: 10-22-2022 Episodic Immunizations and screening for infectious disease (1 source) Encounter for screening for human papillomavirus (HPV); Translations: [ENC SCREENING HUMAN PAPILLOMAVIRUS] Onset: 10-20-2022 Episodic Influenza (2 sources) Influenza due to Influenza B virus 01-01-2020 Episodic Menstrual disorders (4 sources) Irregular menstruation, unspecified; Translations: [IRREGULAR MENSTRUATION UNSPECIFIED] Onset: 09-17-2022 Chronic Multiple sclerosis (5 sources) Multiple sclerosis; Translations: [Multiple sclerosis] Onset: 10-30-2021 Chronic Nonspecific chest pain (2 sources) Chest pain at rest 05-08-2021 Episodic Other complications of (1 source) Diseases of the circulatory system complicating , second trimester; Translations: [DISEASES CIRC SYS COMP PREG 2ND TRI] Onset: 10-26-2022 Episodic Other complications of (4 sources) Diseases of the circulatory system complicating , first trimester; Translations: [DISEASES CIRC SYS COMP PERG 1ST TRI] Onset: 10-22-2022 Episodic Other connective tissue disease (2 sources) Pain in toe 04-02-2021 Episodic Other lower respiratory disease (2 sources) Pulmonary congestion 05-08-2021 Chronic Other lower respiratory disease (2 sources) Chest pain on breathing 05-08-2021 Episodic Other lower respiratory disease (2 sources) Wheezing 10-30-2019 Episodic Other nervous system disorders (2 sources) H/O: migraine 09-09-2014 Episodic Other nutritional; endocrine; and metabolic disorders (3 sources) Body mass index 40+ - severely obese; Translations: [Body mass index (BMI) 40.0-44.9, adult] Onset: 10-30-2021 Chronic Other nutritional; endocrine; and metabolic disorders (1 source) Morbid obesity; Translations: [Morbid (severe) obesity due to excess calories] Onset: 10-30-2021 Chronic Other and delivery including normal (9 sources) Encounter for supervision of normal , unspecified, second trimester; Translations: [Encounter for supervision of other normal , first trimester] Onset: 09-17-2022 Episodic Other screening for suspected conditions (not mental disorders or infectious disease) (4 sources) Encounter for screening for malignant neoplasm of cervix; Translations: [ENC SCREENING MALIG NEOPLASM CERV] Onset: 10-14-2022 Episodic Otitis media and related conditions (1 source) Otitis media; Translations: [Otitis media, unspecified, left ear] Onset: 07-12-2022 Episodic Residual codes; unclassified (3 sources) 12 weeks gestation of ; Translations: [12 weeks gestation of ] Onset: 09-27-2022 Episodic Residual codes; unclassified (1 source) 16 weeks gestation of ; Translations: [16 WEEKS GESTATION OF ] Onset: 10-26-2022 Episodic Residual codes; unclassified (1 source) Unspecified blood type, Rh negative; Translations: [UNSPECIFIED BLOOD TYPE RH NEGATIVE] Onset: 10-26-2022 Episodic Residual codes; unclassified (4 sources) Procedure and treatment not carried out due to patient leaving prior to being seen by health care provider; Translations: [PROC AND TX NOT CARRIED OUT PT LEAVE] Onset: 10-01-2022 Episodic Skin and subcutaneous tissue infections (1 source) Abscess of groin; Translations: [Cutaneous abscess of groin] Onset: 07-12-2022 Episodic Sprains and strains (4 sources) Sprain of unspecified ligament of right ankle, initial encounter; Translations: [SPRAIN UNS LIGAMENT RT ANKLE INIT] Onset: 10-01-2022 Episodic Substance-related disorders (2 sources) Smoker 10-30-2019 Chronic Comment on above: Added secondary to d ocumentation in Social History. Unclassified (2 sources) Patient encounter status 04-02-2021 Past or Other Problems Problem Classification Problem Date Documented Da te Episodic/Chronic Unclassified (2 sources) Onset: 02-11-2014 Resolved: 09-09-2014 12-19-2014 Results Test Name Value Interpretation Reference Range Facility ECG 12-Leadon 05-12-2023 ECG 12-Lead [id number] [facility] Consultation Noteon 11-28-19 Consultation Note [id number] .[id number]:[address] [facility] Echocardiographyon Echocardiography [id number] .[id number]:[address] [facility] AFP MATERNAL FOR SPINA BIFID Aon 10-24-2022 AFP MoM 0.54 Normal [facility] Comment on above: Performed By: #### C BC #### [facility] [address] [address] [address] Elsy Jimenez AFP Value 12.2 ng/mL [facility] Comment on above: Performed By: #### C BC #### [facility] [address] [address] [address] Elsy Jimenez AFP, Serum for Spina Bifida Report Normal [facility] Comment on above: Performed By: #### C BC #### [facility] [address] [address] [address] Elsy Jimenez Comment Comment Normal [facility] Comment on above: Result Comment: Marylu Kelley, Ph.D., [facility] Director . References: Available Upon Request. . Multiples Of Median Cutoffs For AFP Elevations James 2.5 Black 2.8 IDD 2.0 Twins 4.5 Abbreviation Definitions IDD - Insulin Dep Diabetes OSBR - Open Spina Bifida Risk . For further inquiries contact [employer] [facility] [facility] at [phone]. . This test was developed and its performance characteristics determined by [employer]. It has not been cleared or approved by the Food and Drug Administration. Performed By: #### C BC #### [facility] [address] [place] [address] Dr. Elsy Turcios Age Collection Date 15.9 weeks [facility] Comment on above: Performed By: #### C BC #### [facility] [address] [place] [address] Dr. Yilan Jimenez Gestat, Age Based on As provided [facility] Comment on above: Result Comment: Reca lculations are not recommended when gestational dating by LMP and ultrasound are within 10 days. Performed By: #### C BC #### [facility] [address] [place] [address] Dr. Elsy Jimenez Insulin Dep Diabetes No Normal [facility] Comment on above: Performed By: #### C BC #### [facility] [address] [place] [address] Dr. Elsy Jimenez Interpretation Comment Normal [facility] Comment on above: Result Comment: Inte rpretation: Screen Negative . This result is screen negative for OSB. The AFP MoM calculated is based on the gestational age provided. MS-AFP can identify up to 80% of open neural tube defects. Closed neural tube defects and some open defects may not be detected by this test. This test does not screen for Down Syndrome or Trisomy 18. If screening for Down Syndrome or Trisomy 18 is desired, contact [employer] to discuss available options. The [employer] recommends amniocentesis be offered to women age 35 and older. Performed By: #### C BC #### [facility] [address] [place] [address] Dr. Elsy Jimenez [age][place][age] [facility] Comment on above: Performed By: #### C BC #### [facility] [address] [place] [address] Dr. Elsy Jimenez Multiple Gestation No Normal [facility] Comment on above: Performed By: #### C BC #### [facility] [address] [place] [address] Dr. Elsy Jimenez OSBR [place] 1 [place] [address] [facility] Comment on above: Performed By: #### C BC #### [facility] [address] [place] [address] Dr. Elsy Jimenez PDF . [facility] Comment on above: Performed By: #### C BC #### [facility] [address] [place] [address] Dr. Elsy Jimenez Race [facility] Comment on above: Performed By: #### C BC #### [facility] [address] [place] [address] Dr. Elsy Jimenez Test Results: Negative Normal [facility] Comment on above: Performed By: #### C BC #### [facility] [address] [place] [address] Dr. Elsy Jimenez ABO AND RH TYPEon 10-22-2022 ABO and Rh group Nom (Bld) ABO Rh Typing A Rh Negative Normal [facility] Comment on above: Performed By: #### T SH #### [facility] [address] [place] [address] Dr. Elsy Jimenez CBC AUTO DIFFon 10-22-2022 BASO # 0.0 103/ul Normal 0.0-0.1 [facility] Comment on above: Performed By: #### C BC #### [facility] [address] [place] [address] Dr. Elsy Jimenez Basophils/100 WBC (Bld) 0.2 % Normal 0.2-2.0 [facility] Comment on above: Performed By: #### C BC #### [facility] [address] [place] [address] Dr. Elsy Jimenez EO # 0.1 103/ul Normal 0.0-0.7 [facility] Comment on above: Performed By: #### C BC #### [facility] [address] [place] [address] Dr. Elsy Jimenez Eosinophils/100 WBC (Bld) 0.7 % Critically low 0.9-7.0 [facility] Comment on above: Performed By: #### C BC #### [facility] [address] [place] [address] Dr. Elsy Jimenez Erythrocyte distribution width (RBC) [Ratio] 14.3 % Normal 11.0-15.0 [facility] Comment on above: Performed By: #### C BC #### [facility] [address] [place] [address] Dr. Elsy Jimenez Hematocrit (Bld) [Volume fraction] 34.8 % Critically low 36.0-48.0 [facility] Comment on above: Performed By: #### C BC #### [facility] [address] [address] [address] Elsy Jimenez Hemoglobin (Bld) [Mass/Vol] 11.8 g/dL Critically low 12.0-16.0 [facility] Comment on above: Performed By: #### C BC #### [facility] [address] [address] [address] Elsy Jimenez IG # 0.07 10e3/ul Critically high 0.00-0.03 [facility] Comment on above: Performed By: #### C BC #### [facility] [address] [address] [address] Elsy Jimenez IG % 0.8 % Critically high 0.0-0.5 [facility] Comment on above: Performed By: #### C BC #### [facility] [address] [address] [address] Elsy Jimenez LYMPH # 1.4 103/ul Normal 1.2-3.8 [facility] Comment on above: Performed By: #### C BC #### [facility] [address] [place] [address] Dr. Elsy Jimenez Lymphocytes/100 WBC (Bld) 16.0 % Critically low 20.5-60.0 [facility] Comment on above: Performed By: #### C BC #### [facility] [address] [place] [address] Dr. Elsy Jimenez MANUAL DIFF REQ NO Normal [facility] Comment on above: Performed By: #### C BC #### [facility] [address] [address] [address] Elsy Jimenez MCH (RBC) [Entitic mass] 29.1 pg Normal 26.7-34.0 [facility] Comment on above: Performed By: #### C BC #### [facility] [address] [address] [address] Elsy Jimenez MCHC (RBC) [Mass/Vol] 33.9 g/dL Normal 29.9-35.2 [facility] Comment on above: Performed By: #### C BC #### [facility] [address] [address] [address] Elsy Jimenez MCV (RBC) [Entitic vol] 85.7 fL Normal 81.0-99.0 [facility] Comment on above: Performed By: #### C BC #### [facility] [address] [address] [address] Elsy Jimenez MONO # 0.4 103/ul Normal 0.3-0.8 [facility] Comment on above: Performed By: #### C BC #### [facility] [address] [address] [address] Elsy Jimenez Monocytes/100 WBC (Bld) 4.1 % Normal 1.7-12.0 [facility] Comment on above: Performed By: #### C BC #### [facility] [address] [place] [address] Dr. Elsy Jimenez NEUT # 6.9 103/ul Critically high 1.4-6.5 [facility] Comment on above: Performed By: #### C BC #### [facility] [address] [place] [address] Dr. Elsy Jimenez Neutrophils/100 WBC (Bld) 78.2 % Critically high 43.0-75.0 [facility] Comment on above: Performed By: #### C BC #### [facility] [address] [place] [address] Dr. Elsy Jimenez Platelet mean volume (Bld) [Entitic vol] 11.3 fL Normal 9.5-13.5 [facility] Comment on above: Performed By: #### C BC #### [facility] [address] [place] [address] Dr. Elsy Jimenez PLT 199 103/ul Normal 150-450 [facility] Comment on above: Performed By: #### C BC #### [facility] [address] [address] [address] Elsy Jimenez RBC 4.06 106/ul Critically low 4.20-5.40 [facility] Comment on above: Performed By: #### C BC #### [facility] [address] [address] [address] Elsy Jimenez WBC 8.8 103/ul Normal 4.0-11.0 [facility] Comment on above: Performed By: #### C BC #### [facility] [id number] Elsy Jimenez CULTURE URINEon 10-22-2022 CULTURE URINE Culture Observations : MODERATE GROWTH OF MIXED GENITAL ARELI. NO POTENTIAL PATHOGENS SEEN. Normal [facility] Comment on above: Performed By: #### U RCX #### [facility] [address] [address] [address] Elsy Jimenez ECHOCARDIO M/2D COMPLETEon 0 10-22-2022 ECHOCARDIO M/2D COMPLETE Patient: MARIO BARNES Exam Date: 10/22/2022 : 1990 Gender:F Ordering : DOMINGO NEWBERRY [facility] Admission #: [id number] Family : DR ANDREW SIMMONS Order #: [id number] CLICK HERE TO VIEW EXAM ECHOCARDIOGRAM REPORT PROCEDURE: CARDIO PULMONARY ECHOCARDIO M/2D COMP INDICATIONS: Tachycardia, palpitations COMPARISON: None. DESCRIPTION: COMPLETE ECHOCARDIOGRAM Real-time transthoracic echocardiography with 2D, M-mode, spectral and color flow Doppler performed. QUALITY: Technical quality was good. LEFT VENTRICLE: Normal chamber size. Normal left ventricular wall thickness. Normal systolic function. LV EF: Normal left ventricular ejection fraction, (>55%). DIASTOLIC: Normal diastolic function. ATRIAL SEPTUM: LEFT ATRIUM: Normal chamber size. RIGHT ATRIUM: Normal chamber size. RIGHT VENTRICLE: Normal chamber size. Normal right ventricular systolic function. TRICUSPID VALVE: Normal mobility and thickness. No stenosis with no regurgitation. MITRAL VALVE: Normal mobility and thickness. No evidence of mitral valve stenosis. There is no mitral annular calcification. No mitral regurgitation. AORTIC VALVE: Normal trileaflet appearance. No visible sclerosis. Normal leaflet mobility. No evidence of aortic valve stenosis. No aortic regurgitation. AORTIC ROOT: Normal diameter and appearance. PULMONIC VALVE: Normal thickness and mobility. No stenosis. No regurgitation. PERICARDIUM: No evidence of pericardial effusion. IVC: Collapses with inspirations. PLEURA: CONCLUSION: 1. Normal ventricular systolic function. LVEF is 55 to 60%. 2. Normal diastolic function. 3. No significant valvular dysfunction. Adult Echocardiography Procedure Report Left Ventricle LVEDD (3.7 - 5.6 cm): 4.66 cm LVESD (2.2 - 4.0 cm): 3.55 cm LVIVS thickness (0.6 - 1.2 cm): 0.93 cm LVPW thickness (0.5 - 1.0 cm): 0.86 cm e': 0.17 m/s E - e': 5.62 LVOT Max Gradient: 3.65 mm[Hg] Peak Velocity (LVOT): 0.96 m/s LVOT Diameter 2.44 cm Left Ventricular Ejection Fraction: 55-60% Left Atrium LA Volume Index (2D A2C): 45.39 ml, 45.39 ml Left Atrium Systolic Dimension: 3.01 cm Mitral Valve MV E to A Ratio: 0.96 Mitral Valve A-Wave Peak Velocity: 1.03 m/s Mitral Valve E-Wave Peak Velocity: 0.98 m/s Right Ventricle Aorta AO Root Diam: 3.14 cm Ascending Ao Diam: 2.59 cm Aortic Valve AoV Area (Peak Malcolm): 3.31 cm2, 3.31 cm2 Peak Velocity(Antegrade Flow): 1.35 m/s Peak Gradient(Antegrade Flow): 7.31 mm[Hg] Tricuspid Valve Peak Velocity: 0.90 m/s Pulmonic Valve Peak Velocity: 1.27 m/s, 1.21 m/s Peak Gradient: 6.45 mm[Hg], 5.81 mm[Hg] Right Atrium Right Atrium Systolic Pressure: 49.22 ml, 49.22 ml Dictated by: Que Archibald M.D. on 10/22/2022 at 19:01 Approved by: Que Archibald M.D. on 10/22/2022 at 19:03 Normal [facility] ER URINE PROFILEon 3 Bilirubin Ql (U) Negative Normal NEGATIVE [facility] Comment on above: Performed By: #### CIERRA GO #### [facility] [address] [place] [id number] Elsy Jimenez Clarity (U) CLEAR Normal CLEAR [facility] Comment on above: Performed By: #### CIERRA GO #### [facility] [address] [place] [address] Dr. Elsy Jimenez Color (U) LT. YELLOW Normal YELLOW [facility] Comment on above: Performed By: #### RON GORO #### [facility] [address] [place] [address] Dr. Elsy HUNT A micrscopic examination will be performed if indicated. Normal [facility] Comment on above: Performed By: #### NELIA GOICRO #### [facility] [address] [place] [address] Dr. Elsy Jimenez Glucose Ql (U) 100 mg/dl Abnormal NEGATIVE [facility] Comment on above: Performed By: #### Lucina TALLEY UMICRO #### [facility] [address] [place] [address] Dr. Elsy Jimenez Hemoglobin Ql (U) LARGE Abnormal NEGATIVE [facility] Comment on above: Performed By: #### Lucina TALLEY UMICRO #### [facility] [address] [place] [address] Dr. Elsy Jimenez Ketones Ql (U) Negative Normal NEGATIVE [facility] Comment on above: Performed By: #### NELIA GOICRO #### [facility] [address] [place] [address] Dr. Elys Jimenez LEUKOCYTES Negative Normal NEGATIVE [facility] Comment on above: Performed By: #### Lucina TALLEY UMICRO #### [facility] [address] [place] [address] Dr. Elsy Jimenez Nitrite Ql (U) Negative Normal NEGATIVE [facility] Comment on above: Performed By: #### Lucina TALLEY UMICRO #### [facility] [address] [place] [address] Dr. Elsy Jimenez pH (U) 6.5 [pH] Normal 5-9 [facility] Comment on above: Performed By: #### Lucina TALLEY UMICRO #### [facility] [address] [place] [address] Dr. Elsy Jimenez SPEC GRAVITY 1.020 Normal 1.005-<=1.025 [facility] Comment on above: Performed By: #### E RUR, UMICRO #### [facility] [address] [address] [address] Elsy iJmenez UA PROTEIN Negative Normal NEGATIVE/ TRACE [facility] Comment on above: Performed By: #### E RUR, UMICRO #### [facility] [address] [address] [address] Elsy Jimenez UR MICRO IND INDICATED Normal [facility] Comment on above: Performed By: #### E FAUSTOR, UMICRO #### [facility] [address] [place] [address] Dr. Elsy Jimenez Urobilinogen Qn (U) 0.2 {Mario'U}/dL Normal 0.2 - 1. 0 [facility] Comment on above: Performed By: #### E MAYANK, UMICRO #### [facility] [address] [place] [address] Dr. Elsy Jimenez PAP ACOG PANEL 2: 30 to 65on 10-22-2022 . . Normal [facility] Comment on above: Result Comment: Perf ormed at: WB Performed By: #### C BC #### [facility] [address] [place] [address] Dr. Elsy Jimenez Age Gdln ACOG Testing 30-65 [facility] Comment on above: Performed By: #### C BC #### [facility] [address] [place] [address] Dr. Elsy Jimenez DIAGNOSIS: Comment Normal [facility] Comment on above: Result Comment: NEGA TIVE FOR INTRAEPITHELIAL LESION OR MALIGNANCY. Performed at: WB Performed By: #### C BC #### [facility] [address] [place] [address] Dr. Elsy Jimenez HPV Aptima Negative Normal Negative [facility] Comment on above: Result Comment: This nucleic acid amplification test detects fourteen high-risk HPV types (16,18,31,33,35,39,45,51,52,56,58,59,66,68) without differentiation. Performed at: =G Performed By: #### C BC #### [facility] [address] [place] [address] Dr. Elsy Jimenez HPV Genotype Reflex Comment Normal [facility] Comment on above: Result Comment: Crit jw not met, HPV Genotype not performed. Performed at: WB Performed By: #### C BC #### [facility] [address] [place] [address] Dr. Elsy Jimenez Methodology: Comment Normal [facility] Comment on above: Result Comment: This liquid based ThinPrep(R) pap test was screened with the use of an image guided system. Performed at: WB Performed By: #### C BC #### [facility] [address] [place] [address] Dr. Elsy Jimenez Note: Comment Normal [facility] Comment on above: Result Comment: The Pap smear is a screening test designed to aid in the detection of premalignant and malignant conditions of the uterine cervix. It is not a diagnostic procedure and should not be used as the sole means of detecting cervical cancer. Both false-positive and false-negative reports do occur. . Performed at: WB Performed By: #### C BC #### [facility] [address] [place] [address] Dr. Elsy Jimenez Performed by: Comment Normal [facility] Comment on above: Result Comment: Carmen Rand, Environmental Solutions Engineer (ASCP) Performed at: WB Performed By: #### C BC #### [facility] [address] [place] [address] Dr. Elsy Jimenez Specimen adequacy: Comment Normal [facility] Comment on above: Result Comment: Sati sfactory for evaluation. Endocervical and/or squamous metaplastic cells (endocervical component) are present. Performed at: WB Performed By: #### C BC #### [facility] [address] [place] [address] Dr. Elsy Jimenez TSHon 10-22-2022 TSH 0.787 uIU/mL Normal 0.358-3.740 [facility] Comment on above: Performed By: #### T SH #### [facility] [address] [place] [address] Dr. Elsy Jimenez URINE MICROSCOPIC ONLYon BACTERIA SMALL Abnormal NONE SEEN [facility] Comment on above: Performed By: #### E RUR, UMICRO #### [facility] [address] [place] [address] Dr. Elsy Jimenez Bacteria identified Cx Nom (U) INDICATED Normal [facility] Comment on above: Performed By: #### E RUR, UMICRO #### [facility] [address] [place] [address] Dr. Elsy Jimenez CAST NONE SEEN Normal NONE SEEN [facility] Comment on above: Performed By: #### E RUR, UMICRO #### [facility] [address] [place] [address] Dr. Elsy Jimenez Crystals LM Nom (Urine sed) NONE SEEN Normal NONE SEEN [facility] Comment on above: Performed By: #### E RUR, UMICRO #### [facility] [address] [place] [address] Dr. Elsy Jimenez Epithelial cells LM Ql (Urine sed) MANY Abnormal NONE SEEN /RARE [facility] Comment on above: Performed By: #### E MAYANK UMICRO #### [facility] [address] [place] [address] Dr. Elsy Jimenez MUCOUS TRACE Abnormal NONE SEEN [facility] Comment on above: Performed By: #### E RUVolodymyr, UMICRO #### [facility] [address] [place] [address] Dr. Elsy Jimenez RBC 5-10 Abnormal 0-2 [facility] Comment on above: Performed By: #### Lucina TALLEY UMICRO #### [facility] [address] [place] [address] Dr. Elsy Jimenez WBC 2-5 Abnormal NONE SEEN [facility] Comment on above: Performed By: #### Lucina TALLEY UMICRO #### [facility] [address] [place] [address] Dr. Elsy Jimenez US PREG PLACENTAon 3 US PREG PLACENTA EXAMINATION: US PREG PLACENTA HISTORY: Pain , vaginal bleeding COMPARISON: Ultrasound transvaginal 09/17/2022 FINDINGS: PLACENTA: Posterior, grade 0, without subchorionic hematoma or abruption. CERVIX LENGTH: 3.9 cm, closed. HEART RATE: 160 bpm OTHER: None. IMPRESSION: 1. Posterior placenta without abruption or hematoma. 2. Closed cervix 3.9 cm in length. Electronically authenticated by: MYNOR MCCLOUD Date: 2022-10-22 12:01 Normal [facility] Office Visiton 09-27-2022 Follow-up visit [id number] Mario Barnes 1990 F Date Provider Department Center 09/27/2022 [facility]O [facility] Family History Problem Relation Age of Onset Heart attack Mother 55 Comments: 1-2 stents at this time Coronary artery disease Mother Hypertension Mother Stroke Father 48 Cancer Father Comments: Lymphoma Hypertension Father Coronary artery disease Sister 40 Comments: s/p CABG Diabetes Sister Lupus Sister Other Sister Family Status - Relation Status Age at Mother Alive Father Alive Sister Alive Sister Alive Level of Service:36269 [place] OFFICE/OUTPATIENT NEW LOW MDM 30-44 MINUTES Reason for Visit and Comments: Rapid Heart Rate [038588] Normal [facility] HEP B SURFACE ANTIGEN SCREEN on 09-18-2022 HBsAg Screen Negative Normal Negative [facility] Comment on above: Performed By: #### H BSANS #### [facility] [address] [address] [address] Elsy Jimenez HEPATITIS C VIRUS AB W/ REFL EX QUANTon 09-18-2022 HCV AB Non-Reactive Normal Non Reactive [facility] Comment on above: Performed By: #### C BC #### [facility] [address] [address] [address] Elsy Jimenez Interpretation: Comment Normal [facility] Comment on above: Result Comment: Not infected with HCV unless early or acute infection is suspected (which may be delayed in an immunocompromised individual), or other evidence exists to indicate HCV infection. Performed By: #### C BC #### [facility] [address] [place] [address] Dr. Elsy Jimenez HIV 1 AND 2 WITH REFLEXon HIV Screen 4th Generation wRfx Non-Reactive Normal Non Reactive [facility] Comment on above: Result Comment: HIV Negative HIV-1/HIV-2 antibodies and HIV-1 p24 antigen were NOT detected. There is no laboratory evidence of HIV infection. Performed By: #### H IV12 #### [facility] [address] [place] [address] Dr. Elsy Jimenez RPR QUANTon 09-18-2022 Rapid Plasma Reagin, Quant Non-Reactive Normal NonRea<1:1 [facility] Comment on above: Result Comment: Plea se Note: This test does not meet current guidelines for screening and diagnosis of syphilis. This test is intended for following treatment response in patients being treated for syphilis infection. To screen for syphilis infection, a reflex cascade that includes both RPR and a treponema-specific assay should be utilized, such as Treponema pallidum (Syphilis) Screening [place] (418273) or Rapid Plasma Reagin (RPR) Test With Reflex to Quantitative RPR and Confirmatory Treponema pallidum Antibodies (525646). Performed By: #### T SH #### [facility] [address] [place] [address] Dr. Elsy Jimenez RUBELLA AB IGGon 09-18-2022 Rubella Antibodies, IgG 1.30 index Normal Immune >0.99 [facility] Comment on above: Result Comment: Non- immune <0.90 Equivocal 0.90 - 0.99 Immune >0.99 Performed By: #### C BC #### [facility] [address] [place] [address] Dr. Elsy Jimenez BOX TEST SENT OUTon 09-18-19 23 SENT TO REF LAB 09/17/2022 Normal [facility] Comment on above: Performed By: #### C BC #### [facility] [address] [place] [address] Dr. Elsy Jimenez CBC AUTO DIFFon 09-17-2022 BASO # 0.0 103/ul Normal 0.0-0.1 [facility] Comment on above: Performed By: #### C BC #### [facility] [address] [place] [address] Dr. Elsy Jimenez Basophils/100 WBC (Bld) 0.3 % Normal 0.2-2.0 [facility] Comment on above: Performed By: #### C BC #### [facility] [address] [address] [address] Elsy Jimenez EO # 0.1 103/ul Normal 0.0-0.7 [facility] Comment on above: Performed By: #### C BC #### [facility] [address] [place] [address] Dr. Elsy Jimenez Eosinophils/100 WBC (Bld) 0.7 % Critically low 0.9-7.0 [facility] Comment on above: Performed By: #### C BC #### [facility] [address] [place] [address] Dr. Elsy Jimenez Erythrocyte distribution width (RBC) [Ratio] 13.6 % Normal 11.0-15.0 [facility] Comment on above: Performed By: #### C BC #### [facility] [address] [place] [address] Dr. Elsy Jimenez Hematocrit (Bld) [Volume fraction] 38.1 % Normal 36.0-48.0 [facility] Comment on above: Performed By: #### C BC #### [facility] [address] [place] [address] Dr. Elsy Jimenez Hemoglobin (Bld) [Mass/Vol] 13.1 g/dL Normal 12.0-16.0 [facility] Comment on above: Performed By: #### C BC #### [facility] [address] [place] [address] Dr. Elsy Jimenez IG # 0.04 10e3/ul Critically high 0.00-0.03 [facility] Comment on above: Performed By: #### C BC #### [facility] [address] [place] [address] Dr. Elsy Jimenez IG % 0.5 % Normal 0.0-0.5 [facility] Comment on above: Performed By: #### C BC #### [facility] [address] [place] [address] Dr. Elsy Jimenez LYMPH # 1.3 103/ul Normal 1.2-3.8 [facility] Comment on above: Performed By: #### C BC #### [facility] [address] [place] [address] Dr. Elsy Jimenez Lymphocytes/100 WBC (Bld) 16.5 % Critically low 20.5-60.0 [facility] Comment on above: Performed By: #### C BC #### [facility] [address] [place] [address] Dr. Elsy Jimenez MANUAL DIFF REQ NO Normal [facility] Comment on above: Performed By: #### C BC #### [facility] [address] [place] [address] Dr. Elsy Jimenez MCH (RBC) [Entitic mass] 29.0 pg Normal 26.7-34.0 [facility] Comment on above: Performed By: #### C BC #### [facility] [address] [place] [address] Dr. Elsy Jimenez MCHC (RBC) [Mass/Vol] 34.4 g/dL Normal 29.9-35.2 [facility] Comment on above: Performed By: #### C BC #### [facility] [address] [place] [address] Dr. Elsy Jimenez MCV (RBC) [Entitic vol] 84.3 fL Normal 81.0-99.0 [facility] Comment on above: Performed By: #### C BC #### [facility] [address] [place] [address] Dr. Elsy Jimenez MONO # 0.4 103/ul Normal 0.3-0.8 [facility] Comment on above: Performed By: #### C BC #### [facility] [address] [place] [address] Dr. Elsy Jimenez Monocytes/100 WBC (Bld) 4.6 % Normal 1.7-12.0 [facility] Comment on above: Performed By: #### C BC #### [facility] [address] [place] [address] Dr. Elsy Jimenez NEUT # 6.0 103/ul Normal 1.4-6.5 [facility] Comment on above: Performed By: #### C BC #### [facility] [address] [place] [address] Dr. Elsy Jimenez Neutrophils/100 WBC (Bld) 77.4 % Critically high 43.0-75.0 [facility] Comment on above: Performed By: #### C BC #### [facility] [address] [address] [address] Elsy Jimenez Platelet mean volume (Bld) [Entitic vol] 11.1 fL Normal 9.5-13.5 [facility] Comment on above: Performed By: #### C BC #### [facility] [address] [address] [address] Elsy Jimenez PLT 209 103/ul Normal 150-450 [facility] Comment on above: Performed By: #### C BC #### [facility] [address] [address] [address] Elsy Jimenez RBC 4.52 106/ul Normal 4.20-5.40 [facility] Comment on above: Performed By: #### C BC #### [facility] [address] [address] [address] Elsy Jimenez WBC 7.7 103/ul Normal 4.0-11.0 [facility] Comment on above: Performed By: #### C BC #### [facility] [address] [address] [address] Elsy Jimenez CULTURE URINEon 09-17-2022 CULTURE URINE Culture Observations : LIGHT GROWTH OF MIXED GENITAL ARELI. NO POTENTIAL PATHOGENS SEEN. Normal [facility] Comment on above: Performed By: #### T SH #### [facility] [address] [place] [address] Dr. Elsy Jimenez GLYCOHEMOGLOBIN A1Con 2022 ADA RECOMMENDATION SEE BELOW Normal [facility] Comment on above: Result Comment: ADA RECOMMENDED LIMIT 4.0 - 6.0 ADA THERAPEUTIC TARGET < 7.0 ACTION SUGGESTED > 7.0 Performed By: #### A 1C #### [facility] [address] [place] [address] Dr. Elsy Jimenez Glucose [Mass/Vol] 105 mg/dL Normal [facility] Comment on above: Performed By: #### A 1C #### [facility] [address] [address] [address] Elsy Jimenez HbA1c (Bld) [Mass fraction] 5.3 % Normal 4.5-6.2 [facility] Comment on above: Performed By: #### A 1C #### [facility] [address] [address] [address] Elsy Jimenez TSHon 09-17-2022 TSH 0.205 uIU/mL Critically low 0.358-3.740 [facility] Comment on above: Performed By: #### T SH #### [facility] [address] [address] [address] Elsy Jimenez TYPE AND SCREENon 09-17-2022 TYPE AND SCREEN Negative Normal [facility] Comment on above: Performed By: #### T SH #### [facility] [address] [address] [address] Elsy Jimenez US PREG TVon 09-17-2022 US PREG TV EXAMINATION: US PREG TV HISTORY: Missed period COMPARISON: No relevant comparison available. FINDINGS: GESTATIONAL SAC: Present and normal appearing. YOLK SAC: Present and normal appearing. POLE: Present and normal appearing. CARDIAC: Present. UTERUS: Normal size and appearance. OVARIES: Right: Normal. Left: Not seen. CERVIX: 4.1 cm in length and closed. CUL-DE-SAC: Normal. OTHER: None. AGE BY LMP: Unknown LMP GUADALUPE BY LMP: AGE BY US CRL: 10 weeks 6 days GUADALUPE BY US CRL: 04/09/2023 IMPRESSION: 1. Single live intrauterine 10 weeks 6 days. Electronically authenticated by: MYNOR MCCLOUD Date: 2022-09-17 08:39 Normal [facility] PREG QUANT HCGon 09-13-2022 HCG QUANT 36542 mIU/mL Normal [facility] Comment on above: Performed By: #### T SH #### [facility] [address] [address] [address] Elsy Jimenez HCG RANGE SEE BELOW Normal [facility] Comment on above: Result Comment: 5-50 0.2-1 WEEK 50-500 1-2 WEEKS 100-5,000 2-3 WEEKS 500-10,000 3-4 WEEKS 1,000-50,000 4-5 WEEKS 10,000-100,000 5-6 WEEKS 15,000-200,000 6-8 WEEKS 10,000-100,000 2-3 MONTHS Performed By: #### T #### [address] [address] Dr[address] Elsy Jimenez Coding Summary.on 07-13-2022 Coding Summary. CD:[id number] G h0bWw+PGhlYWQ+VD7MSPB oB32zsYEwuD6IQ2fDOM1Y HJCXKLIOMM4VQX9uiAB6S IenQ3ZxxjRl EcsjwWWsQD61MEa1TIC3o WeuNTvcoA7jcWNiD8o5Gn NzFS48aP51PDltKHMhNjH 3LjZpbjsgbWFy S9ugDjDidCTzIpf+PHRhY mxlIHdpZHRoPScxMDAlJy AxnYfvCG2rQx8vSNMlFWE vbGxhcHNlOiBj s5ktMBTkRNykGI7ytZjxY 5IfxUY1GMIps4c2Nv45tV I+RBInJPT4aOvmJUtvh63 9WuKvb6xiCTI9 gXHtVDtyEWC6I21lk3S8U CIcNUSgHBX7sTO6oO5zuH yeacumS9BeiRRzRuA6MLV 4sIFanQ5vmGwv jtnhbF1nXim+Q47APT9CR PYAVX4OBxy0J9YlIegwgP I+RV16LRWpKX05yMPkjDI mf5hseOe3QeMo KLKcUHZ0qHmoUCtai3LjS EQfX07mrSQoc4P9GPXufA fzpROuTkUcrNJ4bN6yQCj jqadxe7qlmlhw Rciju2chno21aF03W11gT ZywOEAkXOZ5MZYcMESnkH dlkj1vuP7pJl5+IUcib1y ar0gyfVp0LyFq WGHbioOnbZmyIKD4p6JyG d74Z6UvnAewk7ZrKxr4us 79oWRbd6G0wOG8JJjpFZN jeY3iXSiuXqJ5 DOOzUiJseR15xVOePOrdJ g4vyFuzfXcfTV3fEKHwfd vaZDGsfW2xIHRemVDmyBj wYG7nMUAqlvjk r161OkUlCRM9MVGyeGMeR 0SmjR0jFzImKDCbLTYiA7 CauNWaKZnwY442VOfdGaL 3ICFabxPhJ1Iw ZKDerHykZtN5y7P0Cg9Pj 7HqanweYAX3HOhbZEAgGe ZsCoKzCwL8G9FqClt8VEZ yhJbfZZ6dJ3Fz LEDturjtluzkzFQ8QBJnU AHpnX93mISjOHmuVn6ls5 X3b283SFDvSLPgvY95Ou5 udDogMTBwdCBU vT7sursei3yrummrJoVfJ ZIdWIc3VDf7SGTdzScgPl CdPZP3UdR1LPE1wJOpsO4 ulYaxyicydY8r Oyc+V53hxJ8qHMO9NHK2m jwgESQrqiSmRJ56DL68J6 RyPjwvdGFibGU+PGRpdiB jpHdzBT0sMxDx r4zsp4PfLIvvQ1QuAVUrJ KsmTyb2NTDkCTN6hPL2gW 0qSVBuMJkgx6Y0sHJ1P2C zreEbjs7jq6hm XNFzNKsyR21hyMOzi0M0V OCueMP1ICBfbMdpVaWqwZ 93Oyc+HYIsuDzqn8SlEcd wt8skw5dmgAm9 DcZhAGQxzgHekCckYOQ6y 0EsKm11T53sYCkdRZXyEK IrNLGsCTLfvTdmrt8jbZ5 wIi8+PGNvbCB3 aFP8bK0nELNaAnS6PYnzU 914ToMghAMwGhmng7eme2 jaiOb5YiOgOJZjgrVkeOt lVLB7m5ThOs51 G97dOOuvQXLpPFJbSGLhO QMudEtwxe6diI4qNt1+PC 2og9jmhj24rW91iOW+PHR aHRU9cBujVAdz EYNbzR9aUSznTeL1LQEjL nWhqN41jRQcUGrlWe8ljG vzuBftRA4dFZXljogxi71 6SkDrk0syURCx gLRsCNxqHLL4A85jt7U1X BHsQRVdNGR0qBS0zF0ayL lnbjogbGVmdDsgdmVydGl dBQhdBVzwT830 IHRvcDsnPlBhdGllbnQgT lCmFXk1H5NiEtn2XDLtcL poIA7txBApJPrvJy5eyQn jjDsoJR0oHNPb pvcwa043XxMct2ioAYHft ZVpWShzRNG4S35bg2H5PC HfMZFyRWL2uAH2gU8maRy nbjogbGVmdDsg vgWrmBwtEPbwTZbyU115Q HRvcDsnPkJpcnRoIERhdG F5TT89BC04oNTmq6I0hJD 2O1ZkJOOgahai wvgqdTW2RXBdPBUmeW05B i3lzXfiKt8aAQMeWBI3CM NnfHKwB8KwlZ2sNtAyVZQ cBITzY9RmrJQo EZkhN843NXidQeG9MNEkv jDiT9GsPUUvvVaoCxN4d7 O7Fg9XH6X4QT86ID88iFQ lp1G4lOM0C1Lp NMIfjxgdrpkjzMW0TIXvO BBfcP81Am5ztLkoNi4sFH XjIJU8WJBmyRBcO6EmoT3 yOiAjMDAwMDAw N5ZokLYdHTvtD470QQwhT nR1DOHchlRmF9KrSCDsfU wpBoM6b5T8Xg2CUJw3EF4 8AU78xUPpa8B7 pDR2K2UoDEZmduavnbfft RF6WNYkTOKqiS75Bb9vcG dcHz2rEWTyTHJ2JXYjsER rK5GelU5kEnTc MMIfPMXbD5UzyCUqLLvoV 531PSeaGkB1MZCckwIqU2 SiANVbxMhgKwU7o7Y1Dh1 JJVKdKL37GUG8 gEO4OT49SU80I9SdQcpqx GFibGU+PHRhYmxlIHdpZH RoPScxMDAlJyBzdHlsZT0 lUp2cLQMwGUAr lMwciHRpQcJsx9quHEFlI BsfCI0nhZsaO9OktNM5EY Zub6o1El58F39xY2WbgUS +QPVufWC1iVD6 sD0sSyAfBsK1FGheT934W vZspCWkJfwfm5yur8kspR s6WmM4VAJkdpIqyCdeSQQ 7e0ZjKl99W42o IHdpZHRoPSIxNSUiIHZhb Dkrht2gcR4eBg1+PGNvbC A3yBY4wP2wQaItWuA3XJa nZ616AfNabDEx Rxkfa9dsz0zjgGs1EzOdS DUikkGznNaoMPF6a0VuZj 74Y3IvrHgju8KjNuv8gg0 2hZKpg8I1rVE6 J5MkZTNqdtmwzWCglNqgQ Z1iFPAqaofsGFQhgV3mHI PqG5u4TxWvRtC3JOsyZ5A xrcB8JRWeyTKv EDbsGNE3U53it5D8EMZxE FYcYYO0cJN4yE8gePxjin ogbGVmdDsgdmVydGljYWw lBLeuF419CUWu qBhxOQRfnB8dYJTtvRQdn LcbOJ3xNMGwikiuXqOUK4 JIPYPMF1qULWlhZjcemBO +NCNkSVU4yTet TDpjAZZgnK4wHBTbD3v8Z cOlKiI5VFdfD6JsLEAivf kcIb36iQ7bJkNqNaT9FWf iF4AjyyO2CDEk dZJtCPpiTSG6O86iw0X0R FXtANTrWEB3pEG6eA6slY lnbjogbGVmdDsgdmVydGl rVMvtASzjI013 CEJsoLufWoA0MyZ7NmI6E MW3X8FvAac0LIOuwZlbSD 0fxZEmTZgzUw5vmTuanVb kBI0uRBNvknmy TINofN0mANPomZBbrLfcA U4sNKRxmcrbn700RbQhAB C0EEAuyBVxJ5ZwsQ3gSjL aHVCpYIDyR3Tg lKSjRNwdO809TRauUbS7H LKwwoQrQ9JjEBEygTbyCs G7v7O5Cw2iLSTUSSHvjif vdGQ+PHRkIHN0 vQogPVswSXSjcD1yPKGwZ 8r0TqYyNqD8AVndJ0NcKD CihtdeDr83pG9wLgXyDsH 3CVhwG9OysdQ2 KVHsyHKyULfoCHB6X67qa 3G7EEPfBZSzEKY7mWI9aY 1hbGlnbjogbGVmdDsgdmV ydGljYWwtYWxp L426VTQpkYoyIuCdmNNdB TwvdGQ+RMLtMLJ0bMawYG fnDBKjsR8eFGBgV0o1VxF uIrH8RTlkT5Hv RPOitqgrPm76wP1dAoJdJ cM2HJedO2WgqsZ1GRZhgP FsZPtdPUZ9J54cd9R4NAM uHNGmMYD4oDF8 qB5gxAylcyantNQjtNnks rZwzEbyHJdkMZvgD101PP TctAntOrRzSVEaRA7gcJu vdGQ+NB53rh18 B8QsYuzvHdb8XOWsMRX5t JJ3xP5jDBDbPRvmt4C7rG P7M3HmzcMper5hq2fsESB hDMarB92rrFXi b8O0ZMCumCT7OUFuvZpjX gXazO99Wkl+PGNvbGdyb3 UnYdfbf9lyh5zbqTl9PwV wJSIgdmFsaWdu QEK7u3QdXd05F00yFNtmO HRoPSIzMCUiIHZhbGlnbj 0wgV3eUw7+SMBlnNQ0oGY 7aN0cJdPoBwU3 OSseD927JyKfvMDoCrzua 9tib7wcrZj4SfVvLJDnsx GwzUynGJN7p5QeTe33O4N gzRytn2VsUfl6 zn77mOGgx7J7wLB8C8RrX DSltjzjzIZfuBcjWC9pQS JzklupIRGchF0sNJDkG4p 5GqZlPoZ6SVgz G7HzqvV1MGBrcMQhLHDsm LXUmI6soqdyv3jrwnxvAm FeHPQuEAz1UFe8KGLnnOm wRxUfBRP9RwH7 UMG2wBQbpO5kvIwgfhpld G9wOyc+ZYx0u2eemHVgUO 7dwSH1NK00SP27qVHoa2H 8cER5M5MwZGRa phdnzpgvdSJ0SCYmQCWgu O36Go1kcYssWp9vYKVbIF N4GWDxfWInR9BzyL1jHeV gCTVzETJnC9Rw mNIwBKmnG838RYxcSnI5C HEhivSoG3UqRKQoxNdkHa G7q9U6Vt4SAC16GO34ZD1 2gIByr5I6xJI8 K8OsPISxkyxzrqnrgNW3S PPsRMQfdP12Ul5xzEbtDr 5fEOMuUAB5VMIsoTClK4B bdW2bWcCaLCMp DOHtR0WqsLUaVGemT325T SafMqT5XCOlqsBmD7KsLI FmyVwmKyV7f6T8Vi8BZw8 7XF93VX23cBLw o3E0vSF5P8HtQKZxddnhb nusiWB7WPGtYBVnyY74Ca 1jdXwbQb8vGSAaKFN2KMY jkPKeC5YyuE5z IbEiQMXfDUBeZ9GnuFQzN ImdL758CAssXrB5CVDsid NqM9McDKIjjEbrIxX8z4U 1Cb2TXQkabig7 J3PaMqvhhXQ+CS49COFgG S10kCRupMSxz7ycsFk2Gm XzATUkKZM6vTwkNXzpz6U yEVJoT18hmAJn c2U6 (more content not included)... Normal [facility] ED Note-Physicianon 07-13-19 ED Note-Physician Basic Information Time Seen: Kian SALVADOR, Dawood Smith. 07/12/2022 14:18 Chief Complaint Pt reports left ear pain. Sinus congestion and headaches. Pt reports s/s for 5 days. Hx of sinus infections.Pt reports she also has abscess near left thigh and groin, drained over the weekend, now hardened. History of Present Illness 31-year-old female reports to emergency department with chief complaint of left-sided ear pain as well as sinus congestion and headaches. Reports that she feels like she has a head cold or may have a sinus infection. Reports that she is also having left ear pain, started a little bit before the head cold. She states that she has been taking fhhf-uzy-oivklnj medications, but they are not helping with her symptoms. Reports going on for 5 days now. She also reports that she has not had any fevers with this. Denies any chills nausea or vomiting chest pain or shortness of breath or cough. Reports that she also has an abscess on her left upper thigh near her left outer groin. She reports that been going on for a while, but over the weekend it got really bad, but then it popped and has been draining. Reports is little hard over this area now. Reports that once it popped, the pain did relieve. Reports that she is never had these before. States that it still is actively draining and she is always having gauze over it. Review of Systems A 10 point review of systems is negative except as noted above. Medical and Surgical History: Reviewed and noted Social history: Lives at home Family History: Reviewed. Tobacco: Denies Physical Exam Vitals & Measurements T: 36.7 ?C(Oral) RR: 16 HT: 180.34 cm WT: 138 kg BMI: 42.43 General: The patient appears well and in no apparent distress. Patient is resting comfortably in chair. Afebrile Skin: Warm, dry, no pallor noted. There appears to be moderate size left groin abscess, that does have current drainage noted. Area is hard and very mildly tender to palpation. No active draining seen. Head: Normocephalic, atraumatic Neck: No JVD Eye: PERRLA, EOMI ENT: Moist mucus membranes. Left TM is bulging with mild erythema. Right TM is intact with no bulging or erythema. Pharynx pink moist no erythema or exudates. Cardiovascular: Regular rate normal peripheral perfusion. Radial pulse +2 bilaterally Respiratory: No respiratory distress no accessory muscle use no obvious audible wheezing. Lung sounds clear to auscultation Chest Wall: no deformity Musculoskeletal: normal ROM, no deformity, no swelling GI: No obvious distention Neurological: A&O moves all extremities equal strength and symmetry Psychiatric: Cooperative and appropriate Medical Decision Making MEDICAL DECISION MAKING Number and Complexity of Problems Differential Diagnosis: [] [facility] Data External documents reviewed: [] My EKG interpretation: [] My CT interpretation: [] My X-ray interpretation: [] My Ultrasound interpretation: [] Decision rules/scores evaluated: [] Discussed with: [] Treatment and Disposition ED Course: 31-year-old female reports emergency department with chief complaint of upper sinus pain as well as left ear pain and left-sided groin abscess. She reports that is been going on for at least 5 days now. Reports that with the ear pain and sinus pain is gone for 5 days to take emyj-wjc-ccmmveq medications not resolve her symptoms. On physical exam, my exam is relatively benign, but patient does have positive left-sided otitis media. Due to this we will treat with an amoxicillin based medication. Patient also has an abscess of her left lower groin, which is draining actively, and due to this, we will not do an incision and drainage currently. Because it is draining, we will treat with antibiotic. Due to her having otitis media as well as a left groin abscess, we will treat with Augmentin to try to cover all bacterial agents. I discussed this with the patient, who was agreeable with this. Discussed taking full dose of antibiotics as prescribed. Discussed warm compresses over the abscess area to promote drainage. She can continue take Tylenol ibuprofen for pain. Discussed return precautions. Follow-up with your primary care provider in 3 to 5 days. If symptoms worsen, do not improve, or new symptoms arise please report back to emergency department for further evaluation. The patient was understanding and agreeable to plan moving forward. Shared decision making: [] Code status: [] Assessment/Plan Abscess of left groin (L02.214: Cutaneous abscess of groin) Left otitis media (H66.92: Otitis media, unspecified, left ear) Orders: amoxicillin-clavulana te, 1 tab(s), Oral, q12hr for 10 day(s), 20 tab(s), Refill(s) 0, [id number], 180.3, cm, 07/12/22 13:37:00 EST, Height/Length Dosing, 138, kg, 07/12/22 13:37:00 EST, Weight Dosing Disposition Plan Patient Discharge Condition Stable Discharge Disposition To home Discharge Prescription List Prescriptions Augment (more content not included)... [facility] Comment on above: Result Comment: Elec tronically Signed By: Dawood Langston PA-C\.br\Date and Time Signed: 07/12/22 16:13 EST\.br\Electronically Co-Signed By: Renan Corona DO\.bakari\Date and Time Co-Signed: 07/13/22 07:21 EST Consent for Treatmenton 06-15 Consent for Treatment [id number] .00CD:127 [facility] Discharge Instructionson Discharge Instructions [id number]# 1.00CD:127 [facility] ED Clinical Summaryon 2022 ED Clinical Summary [place] [id number] ED Clinical Summary Person Information Name: MARIO BARNES [place] Age: 31 Years : 1990 Sex: Female Language: Yoruba PCP: Andrew SIMMONS DO, FAAFP Marital Status: Single Phone: [phone] Visit Id: Visit Reason: Abscess - simple; Headache; Ear pain; Sinus Pain/Congestion; SINUS PAIN AND PRESSURE, EAR FEELS CLOGGED Speciality: Acuity: 4 Enc Type: Emergency Med Service: Emergency Arrival: 07/12/2022 13:30:36 Discharge: 07/12/2022 14:57:29 LOS: 000 01:27 Checkin: 07/12/2022 13:30:36 Checkout: 07/12/2022 14:57:29 Dispo Type: Home (Routine DC) EVENTS: Event Name Event Status Request Date/Time Start Date/Time Complete Date/Time Arrive Complete 07/12/2022 13:30:36 07/12/2022 13:30:36 07/12/2022 13:30:36 Document Home Meds Request 07/12/2022 13:30:36 Triage Complete 07/12/2022 13:30:36 07/12/2022 13:37:01 07/12/2022 13:37:01 Bed Assign Complete 07/12/2022 14:14:21 07/12/2022 14:14:21 07/12/2022 14:14:21 Dr Exam Complete 07/12/2022 14:14:21 07/12/2022 14:18:07 07/12/2022 14:18:07 RN Exam Complete 07/12/2022 14:14:21 07/12/2022 14:16:57 07/12/2022 14:16:57 Registration Complete 07/12/2022 14:18:07 07/12/2022 14:33:30 07/12/2022 14:33:30 Dr Exam Complete 07/12/2022 14:20:38 07/12/2022 14:20:38 07/12/2022 14:20:38 Reg Complete Request 07/12/2022 14:33:30 Reg Bed Request Complete 07/12/2022 14:33:30 07/12/2022 14:33:30 07/12/2022 14:33:30 Discharge Complete 07/12/2022 14:50:55 07/12/2022 14:57:39 07/12/2022 14:57:39 Transfer Complete 07/12/2022 14:57:39 07/12/2022 14:57:39 07/12/2022 14:57:39 ADDRESS: [address] [place] [address] [phone] PHYS DOC NOTES: MEDICAL INFORMATION: Prescriptions Given: New Medications [id number], [address], [place] [id number], [phone] amoxicillin-clavulana te (Augmentin 875 mg-125 mg Tab) 1 Tablets By Mouth every 12 hours for 10 Days. Refills: 0. Medications to Continue with No Changes Other Medications albuterol (ProAir HFA 90 mcg/inh inhalation aerosol) 2 Puffs Inhalation Once as needed for wheezing. Refills: 0. meloxicam (Mobic 15 mg Tab) 1 Tablets By Mouth every day. Refills: 5. metoprolol (metoprolol 50 mg ER Tab) 1 Tablets By Mouth 2 times a day. Refills: 3. PATIENT EDUCATION INFORMATION: Instructions: Skin Abscess, Myix-up-Nzsw; Otitis Media, Adult, Qlim-dx-Yiph Follow up: With: Address: When: Andrew Riley [facility], [facility] [place] [address] [facility] (1) In 3 days 07/15/2022 Comments: Follow-up with your primary care provider in 3 to 5 days. If symptoms worsen, do not improve, or new symptoms arise please report back to emergency department for further evaluation. DIAGNOSIS: Abscess of left groin; Left otitis media Normal [facility] ED Patient Education Noteon 07-12-2022 ED Patient Education Note ENT Otitis Media, Adult Otitis media means that the middle ear is red and swollen (inflamed) and full of fluid. The condition usually goes away on its own. Follow these instructions at home: ? Take uypi-stz-rkqqysx and prescription medicines only as told by your doctor. ? If you were prescribed an antibiotic medicine, take it as told by your doctor. Do not stop taking the antibiotic even if you start to feel better. ? Keep all follow-up visits as told by your doctor. This is important. Contact a doctor if: ? You have bleeding from your nose. ? There is a lump on your neck. ? You are not getting better in 5 days. ? You feel worse instead of better. Get help right away if: ? You have pain that is not helped with medicine. ? You have swelling, redness, or pain around your ear. ? You get a stiff neck. ? You cannot move part of your face (paralyzed). ? You notice that the bone behind your ear hurts when you touch it. ? You get a very bad headache. Summary ? Otitis media means that the middle ear is red, swollen, and full of fluid. ? This condition usually goes away on its own. In some cases, treatment may be needed. ? If you were prescribed an antibiotic medicine, take it as told by your doctor. This information is not intended to replace advice given to you by your health care provider. Make sure you discuss any questions you have with your health care provider. Document Released: 11/15/2008 Document Revised: 05/12/2018 Document Reviewed: 06/20/2017 [employer] Patient Education ? 2020 [employer]. Infectious Disease Skin Abscess A skin abscess is an infected area of your skin that contains pus and other material. An abscess can happen in any part of your body. Some abscesses break open (rupture) on their own. Most continue to get worse unless they are treated. The infection can spread deeper into the body and into your blood, which can make you feel sick. A skin abscess is caused by germs that enter the skin through a cut or scrape. It can also be caused by blocked oil and sweat glands or infected hair follicles. This condition is usually treated by: ? Draining the pus. ? Taking antibiotic medicines. ? Placing a warm, wet washcloth over the abscess. Follow these instructions at home: Medicines ? Take iggh-qlk-nqheiag and prescription medicines only as told by your doctor. ? If you were prescribed an antibiotic medicine, take it as told by your doctor. Do not stop taking the antibiotic even if you start to feel better. Abscess care ? If you have an abscess that has not drained, place a warm, clean, wet washcloth over the abscess several times a day. Do this as told by your doctor. ? Follow instructions from your doctor about how to take care of your abscess. Make sure you: ? Cover the abscess with a bandage (dressing). ? Change your bandage or gauze as told by your doctor. ? Wash your hands with soap and water before you change the bandage or gauze. If you cannot use soap and water, use hand auricular acupuncturist. ? Check your abscess every day for signs that the infection is getting worse. Check for: ? More redness, swelling, or pain. ? More fluid or blood. ? Warmth. ? More pus or a bad smell. General instructions ? To avoid spreading the infection: ? Do not share personal care items, towels, or hot tubs with others. ? Avoid making dnoz-dz-huta contact with other people. ? Keep all follow-up visits as told by your doctor. This is important. Contact a doctor if: ? You have more redness, swelling, or pain around your abscess. ? You have more fluid or blood coming from your abscess. ? Your abscess feels warm when you touch it. ? You have more pus or a bad smell coming from your abscess. ? You have a fever. ? Your muscles ache. ? You have chills. ? You feel sick. Get help right away if: ? You have very bad (severe) pain. ? You see red streaks on your skin spreading away from the abscess. Summary ? A skin abscess is an infected area of your skin that contains pus and other material. ? The abscess is caused by germs that enter the skin through a cut or scrape. It can also be caused by blocked oil and sweat glands or infected hair follicles. ? Follow your doctor's instructions on caring for your abscess, taking medicines, preventing infections, and keeping follow-up visits. This information is not intended to replace advice given to you by your health care provider. Make sure you discuss any questions you have with your health care provider. Document Released: 11/15/2008 Document Revised: 2019 Document Reviewed: 07/13/2018 [email or web address] Patient Education ? 2019 [employer]. [facility] ED Patient Summaryon 023 ED Patient Summary [address] [address] Patient Discharge Instructions Person Information Name: MARIO BARNES Age: 31 Years Arrival Date: 07/12/2022 13:30:36 Discharge Diagnosis: Abscess of left groin; Left otitis media Primary Care Physician: Andrew SIMMONS DO, FAAFP Provider Information Primary Provider: Renan Corona DO Advanced Patient Care:None The exam and treatment you received in the Emergency Department were for an urgent problem and are not intended as complete care. It is important that you follow up with a doctor, nurse practitioner, or physician?s application assistant for ongoing care. If your symptoms become worse or you do not improve as expected and you are unable to reach your usual health care provider, you should return to the Emergency Department. We are available 24 hours a day. MARIO BARNES has been given the following list of patient education materials, prescriptions and follow-up instructions: Follow-up Instructions: With: Address: When: Andrew SIMMONS [address] [place] [address], [facility] [place] [phone] Business (1) In 3 days 07/15/2022 Comments: Follow-up with your primary care provider in 3 to 5 days. If symptoms worsen, do not improve, or new symptoms arise please report back to emergency department for further evaluation. In the event that this physician does not participate in your insurance network, please consult with your insurance company to find a nearby participating provider. Patient Education Materials: Skin Abscess, Jrvm-mo-Ihjw; Otitis Media, Adult, Hyhx-cj-Ocsz A MESSAGE TO ALL PATIENTS REGARDING OPIOIDS PRESCRIPTION OPIOIDS: WHAT YOU NEED TO KNOW Prescription opioids can be used to help relieve havuraxi-bs-cgzkjk pain and are often prescribed following a surgery or injury, or for certain health conditions. These medications can be an important part of the treatment but also come with serious risks. It is important to work with your healthcare provider to make sure you are getting the safest, most effective care. WHAT ARE THE RISKS AND SIDE EFFECTS OF OPIOID USE? Prescription opioids carry serious risks of addiction and overdose, especially with prolonged use. An opioid overdose, often marked by slowed breathing, can cause sudden . The use of prescription opioids can have a number of side effects as well, even when taken as directed: ? Tolerance?meaning you might need to take more of the medication for the same pain relief ? Physical dependence?meaning you have symptoms of withdrawal when a medication is stopped ? Increased sensitivity to pain ? Constipation ? Nausea, vomiting, and dry mouth ? Sleepiness and dizziness ? Confusion ? Depression ? Low levels of testosterone that can result in lower sex drive, energy, and strength ? Itching and sweating RISKS ARE GREATER WITH: ? History of drug misuse, substance use disorder, or overdose ? Mental health conditions (such as depression or anxiety) ? Sleep apnea ? Older age (65 years and older) ? Avoid alcohol while taking prescription opioids. Also, unless specifically advised by your health care provider, medications to avoid include: ? Benzodiazepines (such as Xanax or Valium) ? Muscle relaxants (such as Soma or Flexeril) ? Hypnotics (such as Ambien or Lunesta) ? Other prescription opioids KNOW YOUR OPTIONS Talk to your health care provider about ways to manage your pain that don?t involve prescription opioids. Some of these options may actually work better and have fewer risks and side effects. Options may include: ? Pain relievers such as acetaminophen, ibuprofen, and naproxen ? Some medication that are also used for depression or seizures ? Physical therapy and exercise ? Cognitive behavioral therapy, a psychological, goal-directed approach, in which patients learn how to modify physical, behavioral, and emotional triggers of pain and stress. IF YOU ARE PRESCRIBED OPIOIDS FOR PAIN: ? Never take opioids in greater amounts or more often than prescribed. ? Follow up with your primary health care provider. o Work together to create a plan on how to manage your pain. o Talk about ways to help manage your pain that don?t involve prescription opioids. o Talk about any and all concerns and side effects. ? Help prevent misuse and abuse o Never sell or share prescription opioids. o Never use another person?s prescription opioids. ? Store prescription opioids in a secure place and out of reach of others (this may include visitors, children, friends, and family). ? Safely dispose of unused prescription opioids: Find your community drug take-back program or your pharmacy mail-back program, or flush them down the toilet, following guidance from the Food and Drug Administration (www.fda.gov/Drugs/Re sourcesForYou). ? Visit www.cdc.gov/drugoverd ose t (more content not included)... Normal [facility] Vital Signs Date Time Vital Sign Value Performing Clinician Facility 10-24-2022 03:40-0400 Body weight 139.2552 kg JOSE STEWARTLY [facility] Comment on above: Performed By: #### CBC #### [facility] [address] [place] [address] Dr. Elsy Jimenez 07-12-2022 13:34-0500 Body temperature 98.06 [degF] Renan Corona [facility] 07-12-2022 13:34-0500 Respiratory rate 16 /min Renan Corona [facility] 10-30-2021 08:50-0400 Blood Pressure Location Andrew Mybandstock [facility] 10-30-2021 08:50-0400 Body temperature 97.7 [degF] Andrew Yoyi MediaLE [facility] 10-30-2021 08:50-0400 Diastolic blood pressure 82 mm[Hg] Andrew KAPLE [facility] 10-30-2021 08:50-0400 Heart rate 88 /min Andrew KAPLE [facility] 10-30-2021 08:50-0400 Respiratory rate 16 /min Andrew KAPLE [facility] 10-30-2021 08:50-0400 SaO2% (BldA) [Mass fraction] 98 % Andrew KAPLE [facility] 10-30-2021 08:50-0400 Systolic blood pressure 132 mm[Hg] Andrew SIMMONS [facility] Encounters Encounter Date Encounter Type Care Provider Facility Start: 05-20-2023 End: 05-20-2023 ambulatory Not Available Start: 10-22-2022 End: 10-22-[address] MYNOR MCCLOUD Facility: Start: 10-22-2022 End: 10-23-2022 ambulatory DOMINGO EUGENE Facility:[facility] Start: 10-14-2022 End: 10-14-[address] STACIA FERRELL . Facility: Start: 10-01-2022 End: 10-02-2022 ambulatory JOES COLON Facility:[facility] Start: 10-01-2022 End: 10-01-[address] KIRILL BONILLA . Facility: Start: 09-27-2022 End: 09-27-2022 ambulatory [facility] Start: 09-17-2022 End: 09-18-[address] STACIA FERRELL . Facility: Start: 09-13-2022 End: 09-14-[address] STACIA FERRELL . Facility: Start: 07-12-2022 End: 07-12-2022 Emergency department patient visit Renan Corona Facility:[facility] Start: 07-12-2022 End: 07-12-2022 Emergency department patient visit Renan Corona [facility] Start: 10-30-2021 End: 10-30-2021 Patient encounter procedure Andrew SIMMONS [facility] Procedures Date Procedure Procedure Detail Performing Clinician Start: 06-13-2009 Colonoscopy Andrew Verdugo Start: 06-13-2009 Esophagogastroduodenoscopy Andrew SIMMONS Immunizations Immunization Date Immunization Notes Care Provider Fa cilishey 01-09-2021 SARS-CoV-2 (COVID-19 ) mRNA BNT-162b2 vax Andrew Yoyi MediaMARVIN [facility] 12-19-2020 SARS-CoV-2 (COVID-19 ) mRNA BNT-162b2 vax Andrew SIMMONS [facility] 09-11-2014 tetanus toxoid, reduced diphtheria toxoid, and acellular pertussis vaccine, adsorbed Swipp [facility] Comment on above: Reason for Medicatio n: Other (see comment) NEGATED: Highlighted row has not occurred!07-02-2019 influenza virus vaccine, live, attenuated, for intranasal use Andrew Mybandstock [facility] Payers Date Payer Category Payer Medicaid [id number] 2022 Medicaid [id number] 1990 Unknown [id number] 2.16.84 [id number] 1990 Unknown [id number] 2.16.84 [id number] 1990 Unknown [id number] 2.16.84 [id number] 1990 Unknown [id number] 2.16.84 [id number] 1990 Unknown [id number] 2.16.84 [id number] 1990 Unknown [id number] 2.16.84 [id number] 1990 Unknown [id number] 2.16.84 [id number] 1990 Unknown [id number] 2.16.84 [id number] 1990 Unknown [id number] 2.16.84 [id number] 1990 Unknown [id number] 2.16.8 [id number] 1990 Unknown [id number] 2.16.840 .[id number] 1958 Unknown [id number] 1958 Unknown Social History Date Type Detail Facility Start: 01-01-2020 Tobacco smoking status Never s moked tobacco (finding) [facility] Sex Assigned At Female [facility] Functional Status Date Assessment Result Facility 07-12-2022 Functional Status N/A [facility] Clinical Note 10-01-2022 Note Date & Type Note Facility 10-01-2022 Note PROCEDURE: XR ANKLE RT MIN 3 VIEWS HISTORY: Pain of right ankle joint ; pain after falling COMPARISON: None. FINDINGS: BONES:No fracture, acute abnormality, or significant arthropathy. SOFT TISSUES:Mild soft tissue swelling. EFFUSION:None visible. OTHER: Negative. IMPRESSION: 1. Mild-moderate swelling suggesting soft tissue injury. 2. No acute bone abnormality. Electronically authenticated by: MYNOR MCCLOUD Date: 2022-10-01 10:59 [facility] Clinical Note 10-01-2022 Note Date & Type Note Facility 10-01-2022 Note PROCEDURE: XR FOOT R T MIN 3 VIEWS HISTORY: Sprain of right ankle ; pain after falling COMPARISON: None. FINDINGS: BONES:No fracture, acute abnormality, or significant arthropathy. SOFT TISSUES:No visible soft tissue swelling. EFFUSION:None visible. OTHER: Negative. IMPRESSION: 1. No acute bone abnormality. Electronically authenticated by: MYNOR MCCLOUD Date: 2022-10-01 10:58 [facility] Progress note 09-27-2022 Note Date & Type Note Facility 09-27-2022 Note New patient here to establish care. Ref from Dr. Ferrell for tachycardia in . She is currently 12 weeks 2 days along with her second . She was previously on metoprolol succinate 50mg bid before she found out she was . Her mother, father and sister all have CAD- with prior stenting and CABG. Says her HR feels fast, but not irregular. Denies chest pain but once in awhile feels the need to catch her breath . Review of Systems Cardiovascular: Positive for dyspnea on exertion and palpitations. Musculoskeletal: Positive for back pain. Neurological: Positive for headaches and light-headedness. All other systems reviewed and are negative. [facility] Progress note 09-27-2022 Note Date & Type Note Facility 09-27-2022 Note Cardiovascular Medic [facility] SUBJECTIVE Chief Complaint Patient presents with Rapid Heart Rate HPI Mario Barnes is a 32 y.o. female here as a new patient. She was referred from her OB due to an elevated HR. She was taking metoprolol but has stopped since finding out she was . She was started on metoprlol about 1 year ago for high heart rate per her PCP. She will periodically check her HR at home, 90-100 at rest. With activity HR can go into the 130s and she will feel like her HR is racing during these times. This was better when she was on metoprolol. Occasionally she will feel like her heart will skip a beat, she will be resting, then it will resume normally. She may feel like she needs to take a deep breath during this time but this quickly resolves on its own. She has periodic dizziness with MS. Rare feet swelling. Denies CP, orthopnea, PND, syncope. Diet: rarely drinking coffee/pop, maybe once a week; no specific diet modifications ( diet) Exercise: none currently Tobacco: former smoker, quit 6 years ago ETOH: denies Recreational drug use: denies No Known Allergies Patient Active Problem List Diagnosis Encounter for well adult exam with abnormal findings History of migraine Multiple sclerosis (CMS/HCC) Sinus tachycardia Past Medical History: Diagnosis Date Multiple sclerosis (CMS/HCC) Tachycardia History reviewed. No pertinent surgical history. Family History Problem Relation Name Age of Onset Heart attack Mother 55 1-2 stents at this time Coronary artery disease Mother Hypertension Mother Stroke Father 48 Cancer Father Lymphoma Hypertension Father Coronary artery disease Sister 40 s/p CABG Diabetes Sister Lupus Sister Other (htn) Sister Social History Tobacco Use Smoking status: Former Types: Cigarettes Quit date: 2017 Years since quittin.2 Smokeless tobacco: Never Substance Use Topics Alcohol use: Not Currently ROS Cardiovascular: Positive for dyspnea on exertion and palpitations. Musculoskeletal: Positive for back pain. Neurological: Positive for headaches and light-headedness. All other systems reviewed and are negative. OBJECTIVE Visit Vitals BP 112/68 (BP Location: Left arm, Patient Position: Sitting) Pulse (!) 118 Ht 1.803 m (5' 11 ) Wt (!) 138 kg (305 lb) SpO2 96% BMI 42.54 kg/m??? Smoking Status Former BSA 2.63 m??? Medications: Current Outpatient Medications: ondansetron ODT (Zofran-ODT) 4 mg disintegrating tablet, DISSOLVE 1 TABLET ON THE TONGUE EVERY 6 HOURS NEEDED FOR 15 DAYS, Disp: , Rfl: vit,uqhk15-aogl-sebjl (Prenatabs Rx) 29 mg iron- 1 mg tablet, 1 tablet in the morning., Disp: , Rfl: Physical Exam Vitals reviewed. Constitutional: Appearance: Normal appearance. She is obese. HENT: Head: Normocephalic and atraumatic. Right Ear: External ear normal. Left Ear: External ear normal. Eyes: Extraocular Movements: Extraocular movements intact. Conjunctiva/sclera: Conjunctivae normal. Pupils: Pupils are equal, round, and reactive to light. Neck: Comments: No JVD Cardiovascular: Rate and Rhythm: Regular rhythm. Tachycardia present. Pulses: Normal pulses. Heart sounds: Normal heart sounds. Pulmonary: Effort: Pulmonary effort is normal. Breath sounds: Normal breath sounds. Abdominal: General: Bowel sounds are normal. Palpations: Abdomen is soft. Musculoskeletal: Cervical back: Neck supple. Right lower leg: No edema. Left lower leg: No edema. Skin: General: Skin is warm and dry. Neurological: General: No focal deficit present. Mental Status: She is alert and oriented to person, place, and time. Psychiatric: Mood and Affect: Mood normal. Behavior: Behavior normal. Thought Content: Thought content normal. Judgment: Judgment normal. Labs: 09/17/2022 Hgb 13.1, plt 209, WBC 7.7 TSH 0.205 HgbA1c 5.3 05/08/2021 Hgb 15, plt 235 Cr 0.7, BUN 10, eGFR >60, Na 134, K 3.9 CRP 0.7 BNP <5 Testing/Procedures: EKG (09/27/22): sinus, HR 100 EKG 05/08/2021: sinus tachycardia, HR 114 ASSESSMENT/PLAN: Diagnosis Plan 1. Tachycardia ECG 12 lead Holter monitor - 48 hour Transthoracic echo (TTE) complete 2. Palpitations Transthoracic echo (TTE) complete 3. 12 weeks gestation of Holter monitor - 48 hour Transthoracic echo (TTE) complete 4. Multiple sclerosis (CMS/HCC) PLAN: -EKG today shows sinus rhythm, HR 100. HR 118 with initial vitals. -Recent CBC unremarkable, TSH low (she will be having follow-up testing on this) -Will obtain a holter monitor to assess for any arrhythmias. -ECHO ordered to assess for any structural abnormalities. 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 can exacerbate this. -Likely will start her on labetalol to help with HR pending testing above. Follow up in about 4 weeks (around 10/25/2022). Domingo Newberry NP [facility] (more content not included)... [facility] Hospital Discharge instructions 07-12-2022 Note Date & Type Note Facility 07-12-2022 Hospital Discharg e instructions Patient Education 07/12/2022 14:57:39 Skin Abscess, Coau-zx-Giqp Skin Abscess A skin abscess is an infected area of your skin that contains pus and other material. An abscess can happen in any part of your body. Some abscesses break open (rupture) on their own. Most continue to get worse unless they are treated. The infection can spread deeper into the body and into your blood, which can make you feel sick. A skin abscess is caused by germs that enter the skin through a cut or scrape. It can also be caused by blocked oil and sweat glands or infected hair follicles. This condition is usually treated by: Draining the pus. Taking antibiotic medicines. Placing a warm, wet washcloth over the abscess. Follow these instructions at home: Medicines Take ecfe-zqc-bqtntsy and prescription medicines only as told by your doctor. If you were prescribed an antibiotic medicine, take it as told by your doctor. Do not stop taking the antibiotic even if you start to feel better. Abscess care If you have an abscess that has not drained, place a warm, clean, wet washcloth over the abscess several times a day. Do this as told by your doctor. Follow instructions from your doctor about how to take care of your abscess. Make sure you: ?Cover the abscess with a bandage (dressing). ?Change your bandage or gauze as told by your doctor. ?Wash your hands with soap and water before you change the bandage or gauze. If you cannot use soap and water, use hand auricular acupuncturist. Check your abscess every day for signs that the infection is getting worse. Check for: ?More redness, swelling, or pain. ?More fluid or blood. ?Warmth. ?More pus or a bad smell. General instructions To avoid spreading the infection: ?Do not share personal care items, towels, or hot tubs with others. ?Avoid making saac-rk-ecak contact with other people. Keep all follow-up visits as told by your doctor. This is important. Contact a doctor if: You have more redness, swelling, or pain around your abscess. You have more fluid or blood coming from your abscess. Your abscess feels warm when you touch it. You have more pus or a bad smell coming from your abscess. You have a fever. Your muscles ache. You have chills. You feel sick. Get help right away if: You have very bad (severe) pain. You see red streaks on your skin spreading away from the abscess. Summary A skin abscess is an infected area of your skin that contains pus and other material. The abscess is caused by germs that enter the skin through a cut or scrape. It can also be caused by blocked oil and sweat glands or infected hair follicles. Follow your doctor's instructions on caring for your abscess, taking medicines, preventing infections, and keeping follow-up visits. This information is not intended to replace advice given to you by your health care provider. Make sure you discuss any questions you have with your health care provider. Document Released: 11/15/2008 Document Revised: 2019 Document Reviewed: 07/13/2018 [employer] Patient Education 2020 [employer]. 07/12/2022 14:57:39 Otitis Media, Adult, Tasv-wh-Jslb Otitis Media, Adult Otitis media means that the middle ear is red and swollen (inflamed) and full of fluid. The condition usually goes away on its own. Follow these instructions at home: Take fwio-hhp-luudbbp and prescription medicines only as told by your doctor. If you were prescribed an antibiotic medicine, take it as told by your doctor. Do not stop taking the antibiotic even if you start to feel better. Keep all follow-up visits as told by your doctor. This is important. Contact a doctor if: You have bleeding from your nose. There is a lump on your neck. You are not getting better in 5 days. You feel worse instead of better. Get help right away if: You have pain that is not helped with medicine. You have swelling, redness, or pain around your ear. You get a stiff neck. You cannot move part of your face (paralyzed). You notice that the bone behind your ear hurts when you touch it. You get a very bad headache. Summary Otitis media means that the middle ear is red, swollen, and full of fluid. This condition usually goes away on its own. In some cases, treatment may be needed. If you were prescribed an antibiotic medicine, take it as told by your doctor. This information is not intended to replace advice given to you by your health care provider. Make sure you discuss any questions you have with your health care provider. Document Released: 11/15/2008 Document Revised: 05/12/2018 Document Reviewed: 06/20/2017 [employer] Patient Education 2020 [employer]. Follow Up Care 07/12/2022 13:33:17 With:Andrew SIMMONS Address: [address] [place], [place] [id number] [facility] (1) When:07/15/2022 14:50:44 Comments:Follow-up with your primary care provider in 3 to 5 days. If symptoms worsen, do not improve, or new symptoms arise please report back to emergency department for further evaluation. [facility] Evaluation + Plan note 10-30-2021 Laboratory Note Date & Type Note Facility 10-30-2021 Evaluation + Plan note Future Scheduled TestsHepatic Function Panel 10/30/21Lipid Panel 10/30/21Thyroid Stimulating Hormone 10/30/21 [facility] Hospital Discharge instructions 04-02-2021 Note Date & Type Note Facility 04-02-2021 Hospital Discharg e instructions Follow Up Care 04/02/2021 15:06:12 With:Andrew SIMMONS DO, FAAFP FAM, PED Address: [address] [place] [phone] When:Within 3 Month(s) [facility] Evaluation + Plan note Laboratory Note Date & Type Note Facility Evaluation + Plan note Future Appointments Appointment Date:01/29/2022 10:00:00 AM Scheduled Provider:Andrew SIMMONS DO, FAAFP Location:[facility] Appointment Type:FM Open Future Scheduled TestsHepatic Function Panel 10/30/21Lipid Panel 10/30/21Thyroid Stimulating Hormone 10/30/21 [facility] Hospital course Narrative Note Date & Type Note Facility Hospital course Narrative No data available for this section [facility] Progress note Note Date & Type Note Facility Progress note No data available for this section [facility] Summary Purpose Family History No Family History Records FoundNo Family History Records FoundNo Family History Records FoundNo Family History Records Found Advance Directives No Advanced Directives Records FoundNo Advanced Directives Records FoundNo Advanced Directives Records FoundNo Advanced Directives Records Found Additional Source Comments Patient Care team informatio n (unrecognized section and content) Personnel Name: Andrew SIMMONS DO, FAAFP Address: Address: [address] [place], [place] [address] [address] INFORMATION SOURCE (unrecogn ized section and content) DATE CREATED AUTHOR 09/27/2022 [facility] DATE CREATED AUTHOR AUTHOR'S ORGANIZ ATION 10/27/2022 [facility] DATE CREATED AUTHOR AUTHOR'S ORGANIZ ATION 05/15/2023 [facility] DATE CREATED AUTHOR AUTHOR'S ORGANIZ ATION 05/22/2023 [facility] EPIC FOR RECORDS PERTAINING TO PATIENTS WHO ARE OR HAVE BEEN ENROLLED IN A CHEMICAL DEPENDENCY/SUBSTANCEABUSE PROGRAM, SOME INFORMATION MAY BE OMITTED. This clinical summary was aggregated from multiple sources. Caution should be exercised in using it in the provision of clinical care. This summary normalizes information from multiple sources, and as a consequence, information in this document may materially change the coding, format and clinical context of patient data. In addition, data may be omitted in some cases. CLINICAL DECISIONS SHOULD BE BASED ON THE PRIMARY CLINICAL RECORDS. [facility] [employer] [facility]. provides no warranty or guarantee of the accuracy or completeness of information in this document.
[2023-11-21 17:10] LABS: Estimated Average Glucose 105 mg/dL; Glycohemoglobin A1C 5.3 % (4.5-6.2)
[2023-11-21 17:50] LABS: HCG Quantitative <1 mIU/mL; Thyroid Stimulating Hormone 1.571 uIU/mL (0.358-3.740)
[2023-11-21 18:03] LABS: Free T4 0.89 ng/dL (0.76-1.46)
[2023-11-23 08:12] LABS: Luteinizing Hormone(LH) 12.9 mIU/mL (.); Prolactin 9.1 ng/mL (4.8-33.4)
[2023-11-23 09:12] LABS: DHEA-Sulfate 43.8 ug/dL (84.8-378.0); FSH 6.5 mIU/mL (.)
== END 2023-11-21 16:39 | disposition home or self-care (01) ==
LOC: LAB 16:40
PROVIDERS: PCP Family Medicine; Visit Provider Obstetrics & Gynecology
DX: N92.6 Irregular menstruation, unspecified (principal); E28.2 Polycystic ovarian syndrome
CPT/HCPCS: 36415; 82626; 82627; 83001; 83002; 83036; 84146; 84439; 84443; 84702; 85025

== ENCOUNTER 2023-12-12 15:48 | Outpatient (OUT) | payer MEDICAID, SELFPAY ==
--- NOTE | 2023-12-12 15:51 | US_ITS ---
The [address] [address] Patient Name: MARIO MISHRA MRN: [id number] date: 1990 Sex: F Assigned Patient Location: Current Patient Location: Accession/Order Number: [id number] Exam Date: 12/12/2023 16:01 Report Date: 12/14/2023 07:39 At the request of: STACIA SALDANA Procedure: US pelvis w/ transvaginal EXAMINATION: US pelvis w/ transvaginal HISTORY: Irregular Menses N92.6, Polycystic Ovarian Syndrome N92.6 COMPARISON: No relevant comparison available. TECHNIQUE: Transabdominal and/or transvaginal sonographic examination was performed as indicated by examination type. FINDINGS: UTERUS: Normal size and appearance. Incidental small nabothian cysts within cervix. Uterus size: 9.3 x 4.3 x 5.3 cm ENDOMETRIUM: Minimally heterogeneous, but no overtly suspicious findings.. Endometrial thickness: 7 mm RIGHT OVARY: Normal size and appearance. Duplex Doppler demonstrates normal waveform and flow; resistive index 0.6. Ovary size: 3.2 x 3.1 x 3.0 cm LEFT OVARY: Not seen. Obscuring by overlying bowel gas. CUL-DE-SAC: Unremarkable. No significant free fluid. BLADDER: Unremarkable. OTHER: None. US/US pelvis w/ transvaginal IMPRESSION: 1. No specific or suspicious findings to account for patient's symptoms. 2. Left ovary could not be identified due to overlying bowel gas obscuring view. Electronically authenticated by: MYNOR MCCLOUD Date: 12/14/2023 07:39
--- OUTSIDE RECORDS SUMMARY | 2023-12-12 16:01 | XMS_ITS ---
Patient Summarization (C-CDA 2.1 CCD) Created on: December 12, 2023 Bridgette OTT~TAD : 1990 Sex: Female Author Organization Sample organization Care Team Providers Care Senior Business Consultant Name Role Phone Andrew SIMMONS Primary Care Physician DOMINGO NEWBERRY Attending Unavailable ISAIAH, JOSE Admitting Unavailable ISAIAH, JOSE Attending Unavailable ZIEBER, DR MYNOR Helm Consulting Unavailable ISAIAH, JOSE Consulting Unavailable KAPLE, DR CARL Consulting Unavailable ONUR, DOMINGO Admitting Unavailable ONUR, DOMINGO Attending Unavailable DOMINGO NEWBERRY Consulting Unavailable MISC, DR ADAMS Primary Care Unavailable IRIS, DR CARL Consulting Unavailable LES ., DR PALOMO Admitting Unavailable LES ., DR PALOMO Attending Unavailable LES ., DR PALOMO Consulting Unavailable MISC, DR ADAMS Primary Care Unavailable LES ., DR PALOMO Attending Unavailable LES ., DR PALOMO Admitting Unavailable LES ., DR PALOMO Consulting Unavailable ZIEBER, DR MYNOR Helm Consulting Unavailable REQUEST, DR PANTOJA LISTED Consulting Unavaila ble ZIPAT, DR MYNOR Helm Consulting Unavailable MISC, DR [...] ., DR PALOMO Admitting Unavailable KAPLE, DR CARL Consulting Unavailable LES ., DR PALOMO Admitting Unavailable LES ., DR PALOMO Attending Unavailable LES ., DR PALOMO Consulting Unavailable Renan Corona Attending Unavailable Encounters Encounter Date Encounter Type Care Provider Facility Start: 05-20-2023 End: 05-20-2023 ambulatory Not Available Start: 10-22-2022 End: 10-22-[address] MYNOR MCCLOUD Facility:[facility] Start: 10-22-2022 End: 10-23-2022 ambulatory DOMINGO NEWBERRY Facility:[facility] Start: 10-14-2022 End: 10-14-[address] STACIA FERRELL . Facility:[facility] Start: 10-01-2022 End: 10-02-2022 ambulatory JOSE COLON Facility:[facility] Start: 10-01-2022 End: 10-01-[address] KIRILL BONILLA . Facility:[facility] Start: 09-27-2022 End: 09-27-2022 ambulatory [facility] Start: 09-17-2022 End: 09-18-[address] STACIA FERRELL . Facility:[facility] Start: 09-13-2022 End: 09-14-[address] STACIA FERRELL . Facility: Start: 07-12-2022 End: 07-12-2022 Emergency department patient visit Renan Corona Facility[place] [place] Start: 07-12-2022 End: 07-12-2022 Emergency department patient visit Renan Corona [facility] Start: 10-30-2021 End: 10-30-2021 Patient encounter procedure Andrew SIMMONS [facility] Immunizations Immunization Date Immunization Notes Care Provider Fa cili 01-09-2021 SARS-CoV-2 (COVID-19 ) mRNA BNT-162b2 vax Andrew SIMMONS [facility] 12-19-2020 SARS-CoV-2 (COVID-19 ) mRNA BNT-162b2 malcom SIMMONS [facility] 09-11-2014 tetanus toxoid, reduced diphtheria toxoid, and acellular pertussis vaccine, adsorbed Andrew SIMMONS [facility] Comment on above: Reason for Medicatio n: Other (see comment) NEGATED: Highlighted row has not occurred!07-02-2019 influenza virus vaccine, live, attenuated, for intranasal use Andrew SIMMONS [facility] Medications Current Medications Medication Drug Class(es) Dates Sig (Normalized) Sig (Original) amoxicillin 875 mg / clavulanate 125 mg oral tablet (1 source) Penicillin-class Antibacterial Start: 07-12-2022 End: 07-22-2022 Augmentin 875 mg-125 mg Tab 1 tab(s), Oral, q12hr for 10 day(s), 20 tab(s), Refill(s) 0, [facility]/pharmacy #[id number], 180.3, cm, 07/12/22 13:37:00 EST, Height/Length Dosing, 138, kg, 07/12/22 13:37:00 EST, Weight Dosing Start Date: 07/12/22 Stop Date: 07/22/22 Status: Ordered meloxicam 15 mg oral tablet (2 sources) Nonsteroidal Anti-inflammatory Drug Start: 06-16-2021 take 1 tablet by mouth once daily Mobic 15 mg Tab 15 mg = 1 tab(s), Oral, Daily, # 30 tab(s), Refills(s) 5, Pharmacy: [facility]/pharmacy #[id number], 180, cm, 05/08/21 15:10:00 EST, Height/Length Dosing, 151.1, kg, 05/08/21 15:10:00 EST, Weight Dosing Start Date: 06/16/21 Status: Ordered 24 hr metoprolol succinate 50 mg extended release oral tablet (2 sources) beta-Adrenergic Handy Start: 10-30-2021 take 1 tablet by mouth twice daily metoprolol 50 mg ER Tab 50 mg = 1 tab(s), Oral, BID, # 180 tab(s), Refills(s) 3, Pharmacy: [facility]/pharmacy #[id number], 180, cm, 10/30/21 8:54:00 EDT, Height/Length Dosing, 143.8, kg, 10/30/21 8:54:00 EDT, Weight Dosing Start Date: 10/30/21 Status: Ordered ProAir HFA 90 mcg/inh inhalation aerosol (2 sources) Start: 07-04-2019 take 2 puff(s) by inhalation once for wheezing ProAir HFA 90 mcg/inh inhalation aerosol 2 puff(s), Inhalation, Once for wheezing, 8.5 gram, Refill(s) 0, [facility]/pharmacy #[id number], 180.34, cm, 01/03/19 14:09:00 EDT, Height/Length Measured, 137.9, kg, 07/02/19 12:19:00 EST, Weight Measured Start Date: 07/04/19 Status: Ordered Payers Date Payer Category Payer Medicaid [id number] 2022 Medicaid [id number] 1990 Unknown [id number] 2.16.84 [id number] 1990 Unknown [id number] 2.16.84 [id number] 1990 Unknown [id number] 2.16.84 [id number] 1990 Unknown [id number] 2.16.84 [id number] 1990 Unknown [id number] 2.16.84 [id number] 1990 Unknown [id number] 2.16.84 [id number] 1990 Unknown [id number] 2.16.84 [id number] 1990 Unknown [id number] 2.16.84 [id number] 1990 Unknown [id number] 2.16.84 [id number] 1990 Unknown [id number] 2.16.8 [id number] 1990 Unknown [id number] 2.16.840 .[id number] 1959 Unknown [id number] 1958 Unknown Problems Active Problems Problem Classification Problem Date [...] (2 sources) Onset: 02-11-2014 Resolved: 09-09-2014 12-19-2014 Procedures Date Procedure Procedure Detail Performing Clinician Start: 06-13-2009 Carter Carl KAPL E Start: 06-13-2009 Esophagogastroduodenoscopy Andrew SIMMONS Results Test Name Value Interpretation Reference Range Facility ECG 12-Leadon 05-12-2023 ECG 12-Lead [id number] .[id number] Normal [facility] Consultation Noteon 11-28-19 23 Consultation Note [id number]#1 .00CD:127 Normal [facility] Echocardiographyon Echocardiography [id number] .00CD:127 Normal [facility] AFP MATERNAL FOR SPINA BIFID Aon 10-24-2022 AFP MoM 0.54 Normal [facility] Comment on above: Performed By: #### C BC #### [facility] [address] [address] [address] Elsy Jimenez AFP Value 12.2 ng/mL Normal [facility] Comment on above: Performed By: #### C BC #### [facility] [address] [address] [address] Elsy Jimenez AFP, Serum for Spina Bifida Report Normal [facility] Comment on above: Performed By: #### C BC #### [facility] [address] [address] [address] Elsy Jimenez Comment Comment Normal [facility] Comment on above: Result Comment: Marylu Kelley, Ph.D., [facility] Director . References: Available Upon Request. . Multiples Of Median Cutoffs For AFP Elevations James 2.5 Black 2.8 IDD 2.0 Twins 4.5 Abbreviation Definitions IDD - Insulin Dep Diabetes OSBR - Open Spina Bifida Risk . For further inquiries contact [facility] at [phone]. . This test was developed and its performance characteristics determined by [employer]. It has not been cleared or approved by the Food and Drug Administration. Performed By: #### C BC #### [facility] [address] [address] [address] Elsy Turcios Age Collection Date 15.9 weeks Normal [facility] Comment on above: Performed By: #### C BC #### [facility] [id number] Elsy Jimenez Gestat, Age Based on As provided Normal [facility] Comment on above: Result Comment: Reca lculations are not recommended when gestational dating by LMP and ultrasound are within 10 days. Performed By: #### C BC #### [facility] [address] [place] [address] Dr. Elsy Jimenez Insulin Dep Diabetes No Normal [facility] Comment on above: Performed By: #### C BC #### [facility] [address] [place] [address] Dr. Elsy Jimenez Interpretation Comment Normal [facility] Comment on above: Result Comment: Inte [...] Customer Services to discuss available options. The [employer] recommends amniocentesis be offered to women age 35 and older. Performed By: #### C BC #### [facility] [address] [place] [address] Dr. Elsy Jimenez [age] Normal [facility] Comment on above: Performed By: #### C BC #### [facility] [address] [place], [place] [id number] Dr. Elsy Jimenez Multiple Gestation No Normal [facility] Comment on above: Performed By: #### C BC #### [facility] [address] [place] [address] Dr. Elsy Jimenez OSBR [place] [id number] Normal [facility] Comment on above: Performed By: #### C BC #### [facility] [address] [place] [address] Dr. Elsy Jimenez PDF . Normal [facility] Comment on above: Performed By: #### C BC #### [facility] [address] [place] [address] Dr. Elsy Jimenez Race Normal [facility] Comment on above: Performed By: #### C BC #### [facility] [address] [place] [address] Dr. Elsy Jimenez Test Results: Negative Normal [facility] Comment on above: Performed By: #### C BC #### [facility] [address] [place] [address] Dr. Elsy Jimenez ABO AND RH TYPEon 10-22-2022 ABO and Rh group Nom (Bld) ABO Rh Typing A Rh Negative [facility] Comment on above: Performed By: #### T SH #### [facility] [address] [place] [address] Dr. Elsy Jimenez CBC AUTO DIFFon 10-22-2022 BASO # 0.0 103/ul Normal 0.0-0.1 [facility] Comment on above: Performed By: #### C BC #### [facility] [address] [place] [address] Dr. Elsy Jimenez Basophils/100 WBC (Bld) 0.2 % Normal 0.2-2.0 [facility] Comment on above: Performed By: #### C BC #### [facility] [address] [place] [address] Dr. Elsy Jimenez EO # 0.1 103/ul Normal 0.0-0.7 [facility] Comment on above: Performed By: #### C BC #### [facility] [address] [place] [address] Dr. Elsy Jimenez Eosinophils/100 WBC (Bld) 0.7 % Critically low 0.9-7.0 [facility] Comment on above: Performed By: #### C BC #### [facility] [address] [place] [address] Dr. Elsy Jimenez Erythrocyte distribution width (RBC) [Ratio] 14.3 % Normal 11.0-15.0 [facility] Comment on above: Performed By: #### C BC #### [facility] [address] [place] [address] Dr. Elsy Jimenez Hematocrit (Bld) [Volume fraction] 34.8 % Critically low 36.0-48.0 [facility] Comment on above: Performed By: #### C BC #### [facility] [address] [place] [address] Dr. Elsy Jimenez Hemoglobin (Bld) [Mass/Vol] 11.8 g/dL Critically low 12.0-16.0 [facility] Comment on above: Performed By: #### C BC #### [facility] [address] [place] [address] Dr. Elsy Jimenez IG # 0.07 10e3/ul Critically high 0.00-0.03 [facility] Comment on above: Performed By: #### C BC #### [facility] [address] [place] [address] Dr. Elsy Jimenez IG % 0.8 % Critically high 0.0-0.5 [facility] Comment on above: Performed By: #### C BC #### [facility] [address] [place] [address] Dr. Elsy Jimenez LYMPH # 1.4 103/ul Normal 1.2-3.8 [facility] Comment on above: Performed By: #### C BC #### [facility] [address] [place] [address] Dr. Elsy Jimenez Lymphocytes/100 WBC (Bld) 16.0 % Critically low 20.5-60.0 [facility] Comment on above: Performed By: #### C BC #### [facility] [address] [place] [address] Dr. Elsy Jimenez MANUAL DIFF REQ NO Normal [facility] Comment on above: Performed By: #### C BC #### [facility] [address] [place] [address] Dr. Elsy Jimenez MCH (RBC) [Entitic mass] 29.1 pg Normal 26.7-34.0 [facility] Comment on above: Performed By: #### C BC #### [facility] [address] [address] [address] Elsy Jimenez MCHC (RBC) [Mass/Vol] 33.9 g/dL Normal 29.9-35.2 [facility] Comment on above: Performed By: #### C BC #### [facility] [address] [address] [address] Elsy Jimenez MCV (RBC) [Entitic vol] 85.7 fL Normal 81.0-99.0 [facility] Comment on above: Performed By: #### C BC #### [facility] [address] [address] [address] Elsy Jimenez MONO # 0.4 103/ul Normal 0.3-0.8 [facility] Comment on above: Performed By: #### C BC #### [facility] [address] [address] [address] Elsy Jimenez Monocytes/100 WBC (Bld) 4.1 % Normal 1.7-12.0 [facility] Comment on above: Performed By: #### C BC #### [facility] [address] [address] [address] Elsy Jimenez NEUT # 6.9 103/ul Critically high 1.4-6.5 [facility] Comment on above: Performed By: #### C BC #### [facility] [address] [address] [address] Elsy Jimenez Neutrophils/100 WBC (Bld) 78.2 % Critically high 43.0-75.0 [facility] Comment on above: Performed By: #### C BC #### [facility] [address] [address] [address] Elsy Jimenez Platelet mean volume (Bld) [Entitic vol] 11.3 fL Normal 9.5-13.5 [facility] Comment on above: Performed By: #### C BC #### [facility] [address] [address] [address] Elsy Jimenez PLT 199 103/ul Normal 150-450 [facility] Comment on above: Performed By: #### C BC #### [facility] [address] [place], [place] [address] Dr. Elsy Jimenez RBC 4.06 106/ul Critically low 4.20-5.40 [facility] Comment on above: Performed By: #### C BC #### [facility] [address] [place], [place] [address] Dr. Elsy Jimenez WBC 8.8 103/ul Normal 4.0-11.0 [facility] Comment on above: Performed By: #### C BC #### [facility] [address] [place], [place] [address] Dr. Elsy Jimenez CULTURE URINEon 10-22-2022 CULTURE URINE Culture Observations : MODERATE GROWTH OF MIXED GENITAL ARELI. NO POTENTIAL PATHOGENS SEEN. Normal [facility] Comment on above: Performed By: #### U RCX #### [facility] [address] [address] [address] Elsy Jimenez ECHOCARDIO M/2D COMPLETEon 0 10-22-2022 ECHOCARDIO M/2D COMPLETE Patient: MARIO BARNES Exam Date: 10/22/2022 : 1990 Gender:F Ordering : [facility] Admission #: [id number] Family : DR ANDREW SIMMONS Order #: [id number] CLICK HERE TO VIEW EXAM ECHOCARDIOGRAM REPORT [...] M.D. on 10/22/2022 at 19:03 Normal [facility] ER URINE PROFILEon 3 Bilirubin Ql (U) Negative Normal NEGATIVE [facility] Comment on above: Performed By: #### E RUR, UMICRO #### [facility] [address] [place] [address] Dr. Elsy Jimenez Clarity (U) CLEAR Normal CLEAR [facility] Comment on above: Performed By: #### Lucina TALLEY UMICRO #### [facility] [address] [place] [address] Dr. Elsy Jimenez Color (U) LT. YELLOW Normal YELLOW [facility] Comment on above: Performed By: #### Lucina TALLEY UMICRO #### [facility] [address] [place] [address] Dr. Elsy HUNT A micrscopic examination will be performed if indicated. Normal [facility] Comment on above: Performed By: #### Lucina TALLEY UMICRO #### [facility] [address] [place] [address] Dr. Elsy Jimenez Glucose Ql (U) 100 mg/dl Abnormal NEGATIVE [facility] Comment on above: Performed By: #### Lucina TALLEY UMICRO #### [facility] [address] [place] [address] Dr. Elsy Jimenez Hemoglobin Ql (U) LARGE Abnormal NEGATIVE [facility] Comment on above: Performed By: #### RON GORO #### [facility] [address] [place] [address] Dr. Elsy Jimenez Ketones Ql (U) Negative Normal NEGATIVE [facility] Comment on above: Performed By: #### RON GORO #### [facility] [address] [place] [address] Dr. Elsy Jimenez LEUKOCYTES Negative Normal NEGATIVE [facility] Comment on above: Performed By: #### RON GORO #### [facility] [address] [place] [address] Dr. Elsy Jimenez Nitrite Ql (U) Negative Normal NEGATIVE [facility] Comment on above: Performed By: #### Lucina TALLEY UMICRO #### [facility] [address] [place] [address] Dr. Elsy Jimenez pH (U) 6.5 [pH] Normal 5-9 [facility] Comment on above: Performed By: #### Lucina TALLEY UMICRO #### [facility] [address] [place] [address] Dr. Elsy Jimenez SPEC GRAVITY 1.020 Normal 1.005-<=1.025 [facility] Comment on above: Performed By: #### Lucian TALLEY UMICRO #### [facility] [address] [place] [address] Dr. Elsy Jimenez UA PROTEIN Negative Normal NEGATIVE/ TRACE [facility] Comment on above: Performed By: #### Lucina TALLEY UMICRO #### [facility] [address] [place] [address] Dr. Elsy Jimenez UR MICRO IND INDICATED Normal [facility] Comment on above: Performed By: #### Lucina TALLEY UMICRO #### [facility] [address] [place] [address] Dr. Elsy Jimenez Urobilinogen Qn (U) 0.2 {Mario'U}/dL Normal 0.2 - 1. 0 [facility] Comment on above: Performed By: #### Lucina TALLEY UMICRO #### [facility] [address] [place] [address] Dr. Elsy Jimenez PAP ACOG PANEL 2: 30 to 65on 10-22-2022 . . Normal [facility] Comment on above: Result Comment: Perf ormed at: WB Performed By: #### C BC #### [facility] [address] [place] [address] Dr. Elsy Jimenez Age Gdln ACOG Testing 30-65 Normal [facility] Comment on above: Performed By: #### C BC #### [facility] [address] [place] [address] Dr. Elsy Jimenez DIAGNOSIS: Comment Normal [facility] Comment on above: Result Comment: NEGA TIVE FOR INTRAEPITHELIAL LESION OR MALIGNANCY. Performed at: WB Performed By: #### C BC #### [facility] [address] [place] [address] Dr. Elsy Jimenez HPV Aptima Negative Normal Negative [facility] Comment on above: Result Comment: This nucleic acid amplification test detects fourteen high-risk HPV types (16,18,31,33,35,39,45,51,52,56,58,59,66,68) without differentiation. Performed at: =G Performed By: #### C BC #### [facility] [address] [place] [address] Dr. Elsy Jimenez HPV Genotype Reflex Comment Normal [facility] Comment on above: Result Comment: Crit eria not met, HPV Genotype not performed. Performed at: WB Performed By: #### C BC #### [facility] [address] [place] [address] Dr. Elsy Jimenez Methodology: Comment Normal [facility] Comment on above: Result Comment: This liquid based ThinPrep(R) pap test was screened with the use of an image guided system. Performed at: WB Performed By: #### C BC #### [facility] [address] [place] [address] Dr. Elsy Jimenez Note: Comment Normal [facility] Comment on above: Result Comment: The Pap smear is a screening test designed to aid in the detection of premalignant and malignant conditions of the uterine cervix. It is not a diagnostic procedure and should not be used as the sole means of detecting cervical cancer. Both false-positive and false-negative reports do occur. . Performed at: WB Performed By: #### C BC #### [facility] [address] [place] [address] Dr. Elsy Jimenez Performed by: Comment Normal [facility] Comment on above: Result Comment: Carmen Rand, Cd Reactor Operator (ASCP) Performed at: WB Performed By: #### C BC #### [facility] [address] [place], [place] [id number] Dr. Elsy Jimenez Specimen adequacy: Comment Normal [facility] Comment on above: Result Comment: Sati sfactory for evaluation. Endocervical and/or squamous metaplastic cells (endocervical component) are present. Performed at: WB Performed By: #### C BC #### [facility] [address] [place] [address] Dr. Elsy Jimenez TSHon 10-22-2022 TSH 0.787 uIU/mL Normal 0.358-3.740 [facility] Comment on above: Performed By: #### T SH #### [facility] [address] [place] [address] Dr. Elsy Jimenez URINE MICROSCOPIC ONLYon BACTERIA SMALL Abnormal NONE SEEN [facility] Comment on above: Performed By: #### Lucina TALLEY UMICRO #### [facility] [address] [place] [address] Dr. Elsy Jimenez Bacteria identified Cx Nom (U) INDICATED Normal [facility] Comment on above: Performed By: #### Lucina TALLEY UMICRO #### [facility] [address] [place] [address] Dr. Elsy Jimenez CAST NONE SEEN Normal NONE SEEN [facility] Comment on above: Performed By: #### Lucina TALLEY UMICRO #### [facility] [address] [place] [address] Dr. Elsy Jimenez Crystals LM Nom (Urine sed) NONE SEEN Normal NONE SEEN [facility] Comment on above: Performed By: #### Lucina TALLEY UMICRO #### [facility] [address] [place] [address] Dr. Elsy Jimenez Epithelial cells LM Ql (Urine sed) MANY Abnormal NONE SEEN /RARE [facility] Comment on above: Performed By: #### Lucina TALLEY UMICRO #### [facility] [address] [place] [address] Dr. Elsy Jimenez MUCOUS TRACE Abnormal NONE SEEN [facility] Comment on above: Performed By: #### Lucina TALLEY UMICRO #### [facility] [address] [place] [address] Dr. Elsy Jimenez RBC 5-10 Abnormal 0-2 [facility] Comment on above: Performed By: #### Lucina TALLEY UMICRO #### [facility] [address] [place] [address] Dr. Elsy Jimenez WBC 2-5 Abnormal NONE SEEN [facility] Comment on above: Performed By: #### E CIERRA TALLEY #### [facility] [address] [address] [address] Elsy Jimenez US PREG PLACENTAon US PREG PLACENTA EXAMINATION: US PREG PLACENTA HISTORY: Pain , vaginal bleeding COMPARISON: Ultrasound transvaginal 09/17/2022 FINDINGS: PLACENTA: Posterior, grade 0, without subchorionic hematoma or abruption. CERVIX LENGTH: 3.9 cm, closed. HEART RATE: 160 bpm OTHER: None. IMPRESSION: 1. Posterior placenta without abruption or hematoma. 2. Closed cervix 3.9 cm in length. Electronically authenticated by: MYNOR MCCLOUD Date: 2022-10-22 12:01 Normal [facility] Office Visiton 09-27-2022 Follow-up visit [id number] Mario Barnes 1990 F Date Provider Department Center 09/27/2022 [facility] [facility] Family History Problem Relation Age of Onset Heart attack Mother 55 Comments: 1-2 stents at this time Coronary artery disease Mother Hypertension Mother Stroke Father 48 Cancer Father Comments: Lymphoma Hypertension Father Coronary artery disease Sister 40 Comments: s/p CABG Diabetes Sister Lupus Sister Other Sister Family Status - Relation Status Age at Mother Alive Father Alive Sister Alive Sister Alive Level of Service:64397 [place] OFFICE/OUTPATIENT NEW LOW MDM 30-44 MINUTES Reason for Visit and Comments: Rapid Heart Rate [765832] Normal [facility] HEP B SURFACE ANTIGEN SCREEN on 09-18-2022 HBsAg Screen Negative Normal Negative [facility] Comment on above: Performed By: #### H BSANS #### [facility] [address] [address] [address] Elsy Jimenez HEPATITIS C VIRUS AB W/ REFL EX QUANTon 09-18-2022 HCV AB Non-Reactive Normal Non Reactive [facility] Comment on above: Performed By: #### C BC #### [facility] [address] [address] [address] Elsy Jimenez Interpretation: Comment Normal [facility] Comment on above: Result Comment: Not infected with HCV unless early or acute infection is suspected (which may be delayed in an immunocompromised individual), or other evidence exists to indicate HCV infection. Performed By: #### C BC #### [facility] [address] [place] [address] Dr. Elsy Jimenez HIV 1 AND 2 WITH REFLEXon HIV Screen 4th Generation wRfx Non-Reactive Normal Non Reactive [facility] Comment on above: Result Comment: HIV Negative HIV-1/HIV-2 antibodies and HIV-1 p24 antigen were NOT detected. There is no laboratory evidence of HIV infection. Performed By: #### H IV12 #### [facility] [address] [place] [address] Dr. Elsy Jimenez RPR QUANTon 09-18-2022 Rapid Plasma Reagin, Quant Non-Reactive Normal NonRea<1:1 [facility] Comment on above: Result Comment: Plea se Note: This test does not meet current guidelines for screening and diagnosis of syphilis. This test is intended for following treatment response in patients being treated for syphilis infection. To screen for syphilis infection, a reflex cascade that includes both RPR and a treponema-specific assay should be utilized, such as Treponema pallidum (Syphilis) Screening [place] (053081) or Rapid Plasma Reagin (RPR) Test With Reflex to Quantitative RPR and Confirmatory Treponema pallidum Antibodies (126440). Performed By: #### T SH #### [facility] [address] [place] [address] Dr. Elsy Jimenez RUBELLA AB IGGon 09-18-2022 Rubella Antibodies, IgG 1.30 index Normal Immune >0.99 [facility] Comment on above: Result Comment: Non- immune <0.90 Equivocal 0.90 - 0.99 Immune >0.99 Performed By: #### C BC #### [facility] [address] [place] [address] Dr. Elsy Jimenez BOX TEST SENT OUTon 09-18-19 SENT TO REF LAB 09/17/2022 Normal [facility] Comment on above: Performed By: #### C BC #### [facility] [address] [place] [address] Dr. Elsy Jimenez CBC AUTO DIFFon 09-17-2022 BASO # 0.0 103/ul Normal 0.0-0.1 [facility] Comment on above: Performed By: #### C BC #### [facility] [address] [address] [address] Elsy Jimenez Basophils/100 WBC (Bld) 0.3 % Normal 0.2-2.0 [facility] Comment on above: Performed By: #### C BC #### [facility] [address] [address] [address] Elsy Jimenez EO # 0.1 103/ul Normal 0.0-0.7 [facility] Comment on above: Performed By: #### C BC #### [facility] [address] [address] [address] Elsy Jimenez Eosinophils/100 WBC (Bld) 0.7 % Critically low 0.9-7.0 [facility] Comment on above: Performed By: #### C BC #### [facility] [address] [place] [address] Dr. Elsy Jimenez Erythrocyte distribution width (RBC) [Ratio] 13.6 % Normal 11.0-15.0 [facility] Comment on above: Performed By: #### C BC #### [facility] [address] [address] [address] Elsy Jimenez Hematocrit (Bld) [Volume fraction] 38.1 % Normal 36.0-48.0 [facility] Comment on above: Performed By: #### C BC #### [facility] [address] [address] [address] Elsy Jimenez Hemoglobin (Bld) [Mass/Vol] 13.1 g/dL Normal 12.0-16.0 [facility] Comment on above: Performed By: #### C BC #### [facility] [address] [address] [address] Elsy Jimenez IG # 0.04 10e3/ul Critically high 0.00-0.03 [facility] Comment on above: Performed By: #### C BC #### [facility] [address] [address] [address] Elsy Jimenez IG % 0.5 % Normal 0.0-0.5 [facility] Comment on above: Performed By: #### C BC #### [facility] [address] [place] [address] Dr. Elsy Jimenez LYMPH # 1.3 103/ul Normal 1.2-3.8 [facility] Comment on above: Performed By: #### C BC #### [facility] [address] [place] [address] Dr. Elsy Jimenez Lymphocytes/100 WBC (Bld) 16.5 % Critically low 20.5-60.0 [facility] Comment on above: Performed By: #### C BC #### [facility] [address] [place] [address] Dr. Elsy Jimenez MANUAL DIFF REQ NO Normal [facility] Comment on above: Performed By: #### C BC #### [facility] [address] [place] [address] Dr. Elsy Jimenez MCH (RBC) [Entitic mass] 29.0 pg Normal 26.7-34.0 [facility] Comment on above: Performed By: #### C BC #### [facility] [address] [place] [address] Dr. Elsy Jimenez MCHC (RBC) [Mass/Vol] 34.4 g/dL Normal 29.9-35.2 [facility] Comment on above: Performed By: #### C BC #### [facility] [address] [place] [address] Dr. Elsy Jimenez MCV (RBC) [Entitic vol] 84.3 fL Normal 81.0-99.0 [facility] Comment on above: Performed By: #### C BC #### [facility] [address] [place] [address] Dr. Elsy Jimenez MONO # 0.4 103/ul Normal 0.3-0.8 [facility] Comment on above: Performed By: #### C BC #### [facility] [address] [place] [address] Dr. Elsy Jimenez Monocytes/100 WBC (Bld) 4.6 % Normal 1.7-12.0 [facility] Comment on above: Performed By: #### C BC #### [facility] [address] [place] [address] Dr. Elsy Jimenez NEUT # 6.0 103/ul Normal 1.4-6.5 [facility] Comment on above: Performed By: #### C BC #### [facility] [address] [place] [address] Dr. Elsy Jimenez Neutrophils/100 WBC (Bld) 77.4 % Critically high 43.0-75.0 [facility] Comment on above: Performed By: #### C BC #### [facility] [address] [place] [address] Dr. Elsy Jimenez Platelet mean volume (Bld) [Entitic vol] 11.1 fL Normal 9.5-13.5 [facility] Comment on above: Performed By: #### C BC #### [facility] [address] [place] [address] Dr. Elsy Jimenez PLT 209 103/ul Normal 150-450 [facility] Comment on above: Performed By: #### C BC #### [facility] [address] [place] [address] Dr. Elsy Jimenez RBC 4.52 106/ul Normal 4.20-5.40 [facility] Comment on above: Performed By: #### C BC #### [facility] [address] [place] [address] Dr. Elsy Jimenez WBC 7.7 103/ul Normal 4.0-11.0 [facility] Comment on above: Performed By: #### C BC #### [facility] [address] [place] [address] Dr. Elsy Jimenez CULTURE URINEon 09-17-2022 CULTURE URINE Culture Observations : LIGHT GROWTH OF MIXED GENITAL ARELI. NO POTENTIAL PATHOGENS SEEN. Normal [facility] Comment on above: Performed By: #### T SH #### [facility] [address] [place] [address] Dr. Elsy Jimenez GLYCOHEMOGLOBIN A1Con 2022 ADA RECOMMENDATION SEE BELOW Normal [facility] Comment on above: Result Comment: ADA RECOMMENDED LIMIT 4.0 - 6.0 ADA THERAPEUTIC TARGET < 7.0 ACTION SUGGESTED > 7.0 Performed By: #### A 1C #### [facility] [address] [address] [address] Elsy Jimenez Glucose [Mass/Vol] 105 mg/dL Normal [facility] Comment on above: Performed By: #### A 1C #### [facility] [address] [address] [address] Elsy Jimenez HbA1c (Bld) [Mass fraction] 5.3 % Normal 4.5-6.2 [facility] Comment on above: Performed By: #### A 1C #### [facility] [address] [address] [address] Elsy Jimenez TSHon 09-17-2022 TSH 0.205 uIU/mL Critically low 0.358-3.740 [facility] Comment on above: Performed By: #### T SH #### [facility] [address] [place] [address] Dr. Elsy Jimenez TYPE AND SCREENon 09-17-2022 TYPE AND SCREEN Negative Normal [facility] Comment on above: Performed By: #### T SH #### [facility] [address] [place] [address] Dr. Elsy Jimenez US PREG TVon 09-17-2022 [...] MYNOR MCCLOUD Date: 2022-09-17 08:39 Normal [facility] PREG QUANT HCGon 09-13-2022 HCG QUANT 13007 mIU/mL Normal [facility] Comment on above: Performed By: #### T SH #### [facility] [address] [place], [place] [address] Dr. Elsy Jimenez HCG RANGE SEE BELOW Normal [facility] Comment on above: Result Comment: 5-50 0.2-1 WEEK 50-500 1-2 WEEKS 100-5,000 2-3 WEEKS 500-10,000 3-4 WEEKS 1,000-50,000 4-5 WEEKS 10,000-100,000 5-6 WEEKS 15,000-200,000 6-8 WEEKS 10,000-100,000 2-3 MONTHS Performed By: #### T SH #### [facility] [address] [place] [address] [address] [address] Elsy Jimenez Coding Summary.on 07-13-2022 Coding Summary. CD:[id number] G h0bWw+PGhlYWQ+UP8ILVP tL24zlSPtiW5GF2sHUS6Y FFNTTZYAVQ3JML7muLO8B RtwU7JawxSe ZwhyhMQmYX13QHl3TDX9t EarAUholM2bvHFmB3n3Sp YiKT01zD21EDkwOUOtJqG 3LjZpbjsgbWFy C2pdVeZnkAFqZii+PHRhY mxlIHdpZHRoPScxMDAlJy TpnUkoVG4pCq0bDDMeXKM vbGxhcHNlOiBj l5kiPDSxUTnqJZ0eqBuyP 7QajRG4VRNeb5q7Ra30lQ I+RYMpGQH7dEbkPAbuq01 6AdWdu2vlGKM9 rPFhHDekLUH9Q39zr9H1L HHzOTHzALD7xLC8fG8xpC yogfekB6XlhYGsYxK4YRJ 2wOVrtH8joMfw dirflM6sIpm+I05QKZ2PD GAKNQ8RBld8D4DzWkrtgX I+WQ19CRXnZA31zTKspZH uw0btsKt9PbVl GYVdLHC4pLdyQIcks1LtX XDwR89feYViu3B4JPVawR aloDNwWpHxiMM6kH6vSWc utklvw0vouyci Sqzbi4dknm15sN48O36yA RwaVMSyNHL6NHPdGCMufJ zhgp1lvZ7mPk1+THbvr5y rj2pxrIg7MeMv OEUifbPeiIzrYFA1j6HdM j49E1ImyMtkg8DvCtj9yj 44vHMth8R7kKJ5DNthCST stT7aZGtwSoT5 CZPbFcYfoN58qUGjRJtmE j0bsEomzLtqFV6qNSLqqs ltCBQstG3fGCKqbXJmvGb dNI3yHKTgdjvy k572ClUyAAZ4PMQrbMIwQ 5JxjK9dLpHyHAAcNAThT2 ZakJCoYJtdV211HWmySrV 5DTUpqfAkI2Xo WUHtsZiaIjL9v3Y3On2Fh 5WmmjnqJGK2FUuxTQLlRp AlSbPjMrD6E3QuOkg8DNO zeOhkBE4yW9Za XXTtegbqgfpotOX4GRIiH WUdoF81hQRtODolBx1zg8 R5s107YDOhDGFqvF53Jq6 udDogMTBwdCBU tH6exffrd4gfceyuTjBrI EVjNZy1STz1HSXraKflLo MsQKN4ZvT5MIC9gNOhpO7 lqHopzvkejE1b Oyc+D42haH1tCKK8JNG4d qufZKGuheXsUE07KM15N5 RyPjwvdGFibGU+PGRpdiB bkOrmKZ0aYxJg o5qid5ChWYgtP0JuOJIpP KqsQfj9RLTuQZE7gIZ9rW 9hXEDkVFlap4B9uEA6H1O lpnWdjl3eu0rh LHLbZCojW62fyPNmy9Q2Q HQdqMG9QWZysUsvKqZabF 93Oyc+ZEBjvInbb5AtDdf gd1hdb4rudGh1 DfWqOSKtmzDquWkhLCX6d 5AkBc89B32bWUftCICcGM AyKVFaJRJaiRylkr1prS0 wIi8+PGNvbCB3 uPP0aH2dWPXxLcP6TDrzR 708PoBhpZTwBniyp5rug0 bpwPz1QyYhBWTsomFkzNf vITM7j9UoOw38 L96zKDlxYJByFVZvQOFtK SNwlBenzh3amI0oKb5+PC 7vq0lfek03iD20fFJ+PHR nTOZ4mWwkFVvs HDXjxX6xRVcxXsB1RZWhW eMfwW36rSNhVUtoXn8rsR gnrAqkAI9yUPAxivecn02 8WfHdo8azOYLd zYRsIIoyRAE6U86vm3X7J RBtPLGeIVV1nMK7wF7siC lnbjogbGVmdDsgdmVydGl aXRgmCRsdX835 IHRvcDsnPlBhdGllbnQgT xStVOq0O4OzXok3NLQnfV aoAN3kvJOvSPkrAs4koNh wrSnxCH6kAIEi rmjww711VrYmk1wvVNVwt YKdOUnfHDC7N43eh2E0QG QoDFQcUST9sVO5sQ2bzCq nbjogbGVmdDsg ohIllNpgUNfiNRneE494U HRvcDsnPkJpcnRoIERhdG X7WP68KL51wOAdz8T6dEO 0E1WgCYKijqix zfrdjFJ4TRRsGFMwrT96F r8wrOktLp7iXFZmFZG6HO HxbQMlH3GnwU6zUvYrIPH qVELpE5AplIEn EVekR950ZXsdKjB0ZQUel fJiO7IuIMXsuHjgVqO6w5 Y1Tn0NN7Q9ZV73GZ92kOA xq2Q8mEL5A8Jj ATSblljhmocrxZU2KCAiH ONqhO66Hb1ngTaoLz6lGF GeLXK1XJOcmTBzU6FukL1 yOiAjMDAwMDAw B3XzhJMhFGwnW990ELwwD uQ4LCQybgZfP3OnBULmyC vjTgS6u0Y2Bg4LMEk8EK1 6WF95oIXkt2Z1 cWP8W9BwTADbytqczlvao MW4RGPeNRJpyX59Rw4txZ orAf8zQTQrAQV8BRYtcPS fF1TxoZ4nUuGi EJJgHXYjN0DkpQBeMJxhB 248LTfxHdJ7UGEtfaVwU7 BwMBFikRfrJsG9w8J4Lw3 KZHWaHR24RYC9 uTE2FW04UC90L1CgTnyaz GFibGU+PHRhYmxlIHdpZH RoPScxMDAlJyBzdHlsZT0 fEw1uJTFgBUBx pPspyWBtZnQlw1wlHMAtT GikHG9hjLakA9XaeLY2WO Fmm9w1Eb41R95dA6EvePM +LGYyhBK0dNR6 vA9iTiNjOfD4BHmyP046G xVfwXXwXugbg5owv5wkhM z8OdH2PVTcnnRhfIyoKUU 4a2XqYk55M07m IHdpZHRoPSIxNSUiIHZhb Ofrgf6xhF2wAm0+PGNvbC K3oAT8hV8dRiDzWvT4BLt lD333XzZuiTNi Wzdng6jpb6hrbTy9KxMrA CGucmCqbLafPQW7k7QvUz 75X2VopDpro1ByYsl7ke9 4oKLct5G4gYY4 A0AuNOWxtglrpAGphMiaI S8vSCEmryxgWXQkcB3nHU SdZ7v4WcNeHuC0JHfzN0Z tdoV7TOAlyUVq RRqaDHX6K10qx4A2MDFwQ VPpVGH9pWE4bO6uvXzfyb ogbGVmdDsgdmVydGljYWw rWFveR355TFBo kHkfTYMotZ7fHSThqAXpx JglIP2bYRHaihudWoPLK6 FWHVJXZ1lOBWfkTuazmMB +GJVfFRE2lSqy CZweEROrmC3qICBvE9r7M oEcLjJ7WThmY1CiHHXamr hfBk33yH8yAeMgYiA7QNz rN6ErwiX6IVFp zRYpIPdqGNW7B61ra9O2V XRdSPAmZPK9yBZ5xL7ntO lnbjogbGVmdDsgdmVydGl yWQooOPsiL769 ALZblOhaZlQ2UnR7IkU3E DG9B8CyKtg3ODWogSyiDM 0kaNDiJGouOi1dyRnhsAd gYV2cJACcoyet NBSlkC1uAARpaJXmzCgiL C0eAFOrshpou528CoKgZB Y1ZLCxqQQiR6BfcR1dNwF aDWWmKOShI1Jk bJSzUXjkQ921HGsbZmQ5W JKaykEwD2CzLPYriMneVv X5y3M9Yw8fOFGGRBYdjjt vdGQ+PHRkIHN0 iWieIHkrNGLaoR3kQFScG 1d4OlBzRsI1COjzX7MeBM NdtcqaAm55zT5wJlOkRxL 7YAmjX4LbvfV5 HGFglTFmUHxsDDM2G62cn 4O4XXEkYVJtEMQ1lGL7sB 1hbGlnbjogbGVmdDsgdmV ydGljYWwtYWxp K412XHMvlBwvInUshLHzU TwvdGQ+NPIuZYU8jMiyLE dySQIncO9zHZGoY0s0RqG xQrU5VIghY2Dh VZYeuuvuId34pC2sQyZdQ dO1FLjnG2VhomP2NQQsmZ MlQIjbJZG4U80ed0K5IPN yLWIcIMO4jLL1 uX4rsCruredhrASsfXjvc vDacPckGIvmJIxaD836ER HiwDlaUtAdKNPsZV0qrMm vdGQ+HU88ur10 P5MuOlirXuh8PFAhIKI7p JP2qC6iZBRgTUkjm0B1dI X4A9JxbxYvfb3yg2vzPXE rZBleS99vhUPw e4I4FOHpgCZ7PZSolGklC lUbdJ40Jmz+PGNvbGdyb3 MgBjmpb3zlm9wslAd6PpS wJSIgdmFsaWdu KNF2u1XkEc56D13sETrcR HRoPSIzMCUiIHZhbGlnbj 3jlQ2oWr3+XROsmOV8fOX 5wW9xJvTfAlJ6 QQblD126AbQrbEBzQwldl 2gqj3sgoAi8SxWdTIDjzh KejAgnTYT8y6VhPu62Y7A kbYgmq7NyQap6 jq11bSQfc7G1gZQ0G4LdN BIkejairOZmvNpqLG4eUQ VibljnCHUcsR4xCUBdZ9r 9XpLoToR2XPch C2HrqpD1UWAfjYEqAOBjt BUBaB7uzwuox6ronwteGx LlUCIgGMq1EAb8YVZazLh oNjYgZGB0TlW3 KFC2mZPuyA2yeOttuclwd G9wOyc+RAr7v4sxiZTuQP 2wzGW3RS33MF08ySQfp2B 4dDX8O2KeUZEe kpymynoqdQN9WNGjNDJfl U68Ge1gpJyyXn4zWDTdPN X1XNPgrHBeE1OmnP4nEfX yLNMuVIAhE9Cq nCOtAUmbG356IYniIcW0I BDvamXrO9XkXJKnsUfjTf K4f8A2Ae5EYB97DZ07ES8 7lTEja9E2wHX3 X1GeKWIalhkraixfkXY6L YGlFZUdeL99Dt5ttXpmBr 7kVTPyZXC7NBKuhIMlW5A qbM4bOwXrCJQv NGXmZ9CmuIPfRUexS744X YniSmD5HKLqncIfI0HaDM TckBikFxJ9m3K0Hy3BCf2 3JG88JU19hWPh f2M5zFG2M6NtQICgujqil yqicSX7WZAyAYVmfS94Gj 1jaPlyEn3iQIHqCTE7RHQ hsXAfJ5ChnL4z NwRsUPVvYZZdJ1XnvKYbQ ZuaK543EZjfApN0NQImvv NuY3EdSKIgiKqrWyN6b0U 4Yx0OBVnonxa5 Y1DyDabxaEL+QH30GOHkF O98tWWkjTSdu1jcmWp9My OkXKWwXWW6zYrlSStbr3S cTIHaS98rlQZz c2U6 (more content not included)... Normal [facility] ED Note-Physicianon 07-13-19 ED Note-Physician Basic [...] She states that she has been taking zmpn-xgx-jsvucor medications, but they are not helping with [...] and Complexity of Problems Differential Diagnosis: [] [facility] Data External documents reviewed: [] My EKG [...] is gone for 5 days to take gwux-wtq-vqporet medications not resolve her symptoms. On physical [...] List Prescriptions Augment (more content not included)... Normal [facility] Comment on above: Result Comment: Elec tronically Signed By: Dawood Langston PA-C\.br\Date and Time Signed: 07/12/22 16:13 EST\.br\Electronically Co-Signed By: Renan Corona DO\.bakari\Date and Time Co-Signed: 07/13/22 07:21 EST Consent for Treatmenton 06-15 Consent for Treatment [id number] .00CD:127 Normal [facility] Discharge Instructionson Discharge Instructions [id number]# 1.00CD:127 Normal [facility] ED Clinical Summaryon 2022 ED Clinical Summary [place] [id number] ED Clinical Summary Person Information Name: MARIO BARNES Sharlene/[facility] Age: 31 Years : 1990 Sex: Female Language: Latvian PCP: Andrew SIMMONS DO, FAAFP Marital Status: Single Phone: [phone] Visit Id: Visit Reason: Abscess - simple; [...] 07/12/2022 14:57:39 07/12/2022 14:57:39 07/12/2022 14:57:39 ADDRESS: [address] [place] [id number] PHYS DOC NOTES: MEDICAL INFORMATION: Prescriptions Given: New Medications [id number], [address], [place] [id number], [phone] amoxicillin-clavulana te (Augmentin 875 mg-125 mg Tab) [...] 3. PATIENT EDUCATION INFORMATION: Instructions: Skin Abscess, Tfva-bk-Lwva; Otitis Media, Adult, Jysy-dh-Unab Follow up: With: Address: Agustina: [facility] [address] Business (1) In 3 days 07/15/2022 Comments: Follow-up with your primary care provider in 3 to 5 days. If symptoms worsen, do not improve, or new symptoms arise please report back to emergency department for further evaluation. DIAGNOSIS: Abscess of left groin; Left otitis media Normal [facility] ED Patient Education Noteon 07-12-2022 ED Patient Education Note ENT Otitis Media, Adult Otitis media means that the middle ear is red and swollen (inflamed) and full of fluid. The condition usually goes away on its own. Follow these instructions at home: ? Take fxoc-wbw-blrxxwb and prescription medicines only as told by [...] 11/15/2008 Document Revised: 05/12/2018 Document Reviewed: 06/20/2017 [employer] Patient Education ? 2019 [employer]. Infectious Disease Skin Abscess A skin abscess [...] these instructions at home: Medicines ? Take hixd-umf-pkdxsjc and prescription medicines only as told by [...] cannot use soap and water, use hand tele marketing executive. ? Check your abscess every day for signs that the infection is getting worse. Check for: ? More redness, swelling, or pain. ? More fluid or blood. ? Warmth. ? More pus or a bad smell. General instructions ? To avoid spreading the infection: ? Do not share personal care items, towels, or hot tubs with others. ? Avoid making llko-vr-nivc contact with other people. ? Keep all [...] 11/15/2008 Document Revised: 2019 Document Reviewed: 07/13/2018 Elsevier Patient Education ? 2020 [employer]. Normal [facility] ED Patient Summaryon 023 ED Patient Summary [address] [address] Patient Discharge Instructions Person Information Name: MARIO BARNES Age: 31 Years Arrival Date: 07/12/2022 13:30:36 Discharge Diagnosis: Abscess of left groin; Left otitis media Primary Care Physician: Andrew SIMMONS DO, FAAFP Provider Information Primary Provider: Renan Corona DO Advanced Shutdown Planner:None The exam and treatment you received in the Emergency Department were for an urgent problem and are not intended as complete care. It is important that you follow up with a doctor, nurse practitioner, or physician?s physician assistant psychiatry for ongoing care. If your symptoms become worse or you do not improve as expected and you are unable to reach your usual health care provider, you should return to the Emergency Department. We are available 24 hours a day. MARIO BARNES has been given the following list of patient education materials, prescriptions and follow-up instructions: Follow-up Instructions: With: Address: When: Andrew SIMMONS [address] [place] [address], [facility] [place] [place] [address] Business (1) In 3 days 07/15/2022 Comments: [...] participating provider. Patient Education Materials: Skin Abscess, Shyv-aa-Yeln; Otitis Media, Adult, Diwr-ss-Dcsy A MESSAGE TO ALL PATIENTS REGARDING OPIOIDS PRESCRIPTION OPIOIDS: WHAT YOU NEED TO KNOW Prescription opioids can be used to help relieve puimdywy-qn-rmmpro pain and are often prescribed following a [...] ose t (more content not included)... Normal [facility] Social History Date Type Detail Facility Start: 01-01-2020 Tobacco smoking status Never s moked tobacco (finding) [facility] Sex Assigned At Female [facility] Vital Signs Date Time Vital Sign Value Performing Clinician Facility 10-24-2022 03:40-0400 Body weight 139.2552 kg JOSE COLON [facility] Comment on above: Performed By: #### CBC #### [facility] [address] [place] [address] Dr. Elsy Jimenez 07-12-2022 13:34-0500 Body temperature 98.06 [degF] Renan Davilae [facility] 07-12-2022 13:34-0500 Respiratory rate 16 /min Renan Corona [facility] 10-30-2021 08:50-0400 Blood Pressure Location Andrew SIMMONS [facility] 10-30-2021 08:50-0400 Body temperature 97.7 [degF] Andrew TONIAMARVIN [facility] 10-30-2021 08:50-0400 Diastolic blood pressure 82 mm[Hg] Andrew SIMMONS [facility] 10-30-2021 08:50-0400 Heart rate 88 /min Andrew SIMMONS [facility] 10-30-2021 08:50-0400 Respiratory rate 16 /min Andrew SIMMONS [facility] 10-30-2021 08:50-0400 SaO2% (BldA) [Mass fraction] 98 % Andrew SIMMONS [facility] 10-30-2021 08:50-0400 Systolic blood pressure 132 mm[Hg] Andrew SIMMONS [facility] Functional Status Date Assessment Result Facility 07-12-2022 Functional Status N/A [facility] Clinical Note 10-01-2022 Note Date [...] authenticated by: MYNOR MCCLOUD Date: 2022-10-01 10:59 [facility] Clinical Note 10-01-2022 Note Date & Type Note Facility 10-01-2022 Note PROCEDURE: XR FOOT R T MIN 3 VIEWS HISTORY: Sprain of right ankle ; pain after falling COMPARISON: None. FINDINGS: BONES:No fracture, acute abnormality, or significant arthropathy. SOFT TISSUES:No visible soft tissue swelling. EFFUSION:None visible. OTHER: Negative. IMPRESSION: 1. No acute bone abnormality. Electronically authenticated by: MYNOR MCCLOUD Date: 2022-10-01 10:58 [facility] Progress note 09-27-2022 Note Date & Type [...] All other systems reviewed and are negative. [facility] Progress note 09-27-2022 Note Date & Type Note Facility 09-27-2022 Note [facility] SUBJECTIVE Chief Complaint Patient [...] NEEDED FOR 15 DAYS, Disp: , Rfl: vit,[id number] (Prenatabs Rx) 29 mg iron- 1 mg [...] [facility] (more content not included)... [facility] Hospital Discharge instructions 07-12-2022 Note Date & Type Note Facility 07-12-2022 Hospital Discharg e instructions Patient Education 07/12/2022 14:57:39 Skin Abscess, Keic-ew-Hiqa Skin Abscess A skin abscess is an [...] Follow these instructions at home: Medicines Take zsxr-tsn-uijopgz and prescription medicines only as told by [...] cannot use soap and water, use hand tele marketing executive. Check your abscess every day for signs that the infection is getting worse. Check for: ?More redness, swelling, or pain. ?More fluid or blood. ?Warmth. ?More pus or a bad smell. General instructions To avoid spreading the infection: ?Do not share personal care items, towels, or hot tubs with others. ?Avoid making fwiv-rc-amdg contact with other people. Keep all follow-up [...] 11/15/2008 Document Revised: 2019 Document Reviewed: 07/13/2018 [employer] Patient Education 2020 [employer]. 07/12/2022 14:57:39 Otitis Media, Adult, Dvfe-lh-Nlvw Otitis Media, Adult Otitis media means that the middle ear is red and swollen (inflamed) and full of fluid. The condition usually goes away on its own. Follow these instructions at home: Take yigc-uav-fownwxh and prescription medicines only as told by [...] 11/15/2008 Document Revised: 05/12/2018 Document Reviewed: 06/20/2017 [employer] Patient [employer]. Follow Up Care 07/12/2022 13:33:17 With:Andrew SIMMONS Address: [address] [place] [address] [facility] (1) When:07/15/2022 14:50:44 Comments:Follow-up with your primary care provider in 3 to 5 days. If symptoms worsen, do not improve, or new symptoms arise please report back to emergency department for further evaluation. [facility] Evaluation + Plan note 10-30-2021 Laboratory Note Date & Type Note Facility 10-30-2021 Evaluation + Plan note Future Scheduled TestsHepatic Function Panel 10/30/21Lipid Panel 10/30/21Thyroid Stimulating Hormone 10/30/21 [facility] Hospital Discharge instructions 04-02-2021 Note Date & Type Note Facility 04-02-2021 Hospital Discharg e instructions Follow Up Care 04/02/2021 15:06:12 With:Andrew SIMMONS DO, FAAFP FAM, PED Address: [address] [place] [address] [place] [address]- When:Within 3 Month(s) [facility] Primary Care Evaluation + Plan note Laboratory Note Date & Type Note Facility Evaluation + Plan note Future Appointments Appointment Date:01/29/2022 10:00:00 AM Scheduled Provider:Andrew SIMMONS DO, FAAFP Location:[facility] Appointment Type:FM Open Future Scheduled TestsHepatic Function Panel 10/30/21Lipid Panel 10/30/21Thyroid Stimulating Hormone 10/30/21 [facility] Primary [facility] Hospital course Narrative Note Date & Type Note Facility Hospital course Narrative No data available for this section [facility] Primary [facility] Progress note Note Date & Type Note Facility Progress note No data available for this section [facility] Summary Purpose Family History No Family History Records FoundNo Family History Records FoundNo Family History Records FoundNo Family History Records Found Advance Directives No Advanced Directives Records FoundNo Advanced Directives Records FoundNo Advanced Directives Records FoundNo Advanced Directives Records Found Additional Source Comments Patient Care team informatio n (unrecognized section and content) Personnel Name: Andrew SIMMONS DO, FAAFP Address: Address[facility] [place] [address]- INFORMATION SOURCE (unrecogn ized section and content) DATE CREATED AUTHOR 09/27/2022 [facility] DATE CREATED AUTHOR AUTHOR'S ORGANIZ ATION 10/27/[address] [facility] DATE CREATED AUTHOR AUTHOR'S ORGANIZ ATION 05/15/2023 [facility] DATE CREATED AUTHOR AUTHOR'S ORGANIZ ATION 05/22/2023 [facility] EPIC FOR RECORDS PERTAINING TO PATIENTS [...] BE BASED ON THE PRIMARY CLINICAL RECORDS. [facility]. provides no warranty or guarantee of the accuracy or completeness of information in this document.
== END 2023-12-12 15:49 | disposition home or self-care (01) ==
LOC: US 15:48
PROVIDERS: PCP Family Medicine; Visit Provider Obstetrics & Gynecology
DX: N92.6 Irregular menstruation, unspecified (principal); E28.2 Polycystic ovarian syndrome
CPT/HCPCS: 76830; 76856